=== PATIENT | female | born 1945 | race Caucasian/White ===

== ENCOUNTER 2022-09-04 14:33 | Outpatient (CLI) | payer MEDICARE, SELFPAY ==
--- NOTE | 2022-09-04 14:40 | CRLHL7_ITS ---
For Patients: As a result of the Century Cures Act, medical imaging exams and procedure reports are released immediately into your electronic medical record. You may view this report before your referring provider. If you have questions, please contact your health care provider. BILATERAL SCREENING MAMMOGRAM WITH COMPUTER-AIDED DETECTION AND TOMOSYNTHESIS TECHNIQUE: CC and MLO views were obtained. These mammographic images have been obtained using full-field digital technique. These mammographic images were interpreted with the benefit of computer-aided detection. Breast Tomosynthesis was used in this interpretation. COMPARISON FILM: 08/22/21 screen, 09/14/20 diagnostic outside. FINDINGS: The breasts are heterogeneously dense, which may obscure small masses IMPRESSION: There is no radiographic evidence for malignancy. ASSESSMENT: BI-RADS Category 1: Negative RECOMMENDATION: Routine screening mammogram in 1 year. A lay language report of this examination will be provided to the patient. Jennifer Kingsley M.D. Diagnostic/Breast Radiologist [email or web address] ROSE/Dictated by: Jennifer Kingsley MD @ 09/05/2022 8:42:00 AM (Electronically Signed)
== END 2022-09-04 14:34 | disposition home or self-care (01) ==
LOC: MAMMO 14:34
DX: Z12.31 Encounter for screening mammogram for malignant neoplasm of breast (principal); R92.2 Inconclusive mammogram
CPT/HCPCS: 77063; 77067

== ENCOUNTER 2023-10-08 13:37 | Outpatient (CLI) | payer MEDICARE, SELFPAY ==
--- NOTE | 2023-10-08 14:00 | CRLHL7_ITS ---
For Patients: As a result of the Century Cures Act, medical imaging exams and procedure reports are released immediately into your electronic medical record. You may view this report before your referring provider. If you have questions, please contact your health care provider. BILATERAL SCREENING MAMMOGRAM WITH COMPUTER-AIDED DETECTION AND TOMOSYNTHESIS TECHNIQUE: CC and MLO views were obtained. These mammographic images have been obtained using full-field digital technique. These mammographic images were interpreted with the benefit of computer-aided detection. Breast Tomosynthesis was used in this interpretation. COMPARISON FILM: 09/04/22, 08/22/21, 09/14/20 (diagnostic), 08/16/20 ([facility]) FINDINGS: The breasts are heterogeneously dense, which may obscure small masses IMPRESSION: There is no radiographic evidence for malignancy. ASSESSMENT: BI-RADS Category 1: Negative RECOMMENDATION: Routine screening mammogram in 1 year. A lay language report of this examination will be provided to the patient. Leland Haynes M.D. Diagnostic Radiologist [email or web address] ROSE/Dictated by: Leland Haynes MD @ 10/09/2023 1:00:00 PM (Electronically Signed)
== END 2023-10-08 13:38 | disposition home or self-care (01) ==
LOC: MAMMO 13:39
PROVIDERS: PCP Family Medicine; Visit Provider Family Medicine
DX: Z12.31 Encounter for screening mammogram for malignant neoplasm of breast (principal); R92.2 Inconclusive mammogram
CPT/HCPCS: 77063; 77067

== ENCOUNTER 2024-06-10 14:41 | Inpatient (IN) | payer MEDICARE, SELFPAY ==
[2024-06-10] VITALS (18 sets, daily range): BP systolic 125–141; BP diastolic 70–75; PULSE 78–92; RESP 16–20; TEMP 36.5–36.8; O2SAT 89–96; BMI 25.8; BMI 24.9
--- NOTE | 2024-06-10 15:43 | ED.GENADULT ---
HPI - General Adult General Time Seen by Provider: 15:43 Date Seen: 06/10/24 Chief complaint: Nausea/Vomiting Stated complaint: stomach pain Time Seen by Provider: 06/10/24 15:41 Source: patient and RN notes reviewed Mode of arrival: ambulatory Limitations: no limitations History of Present Illness HPI narrative: This 78-year-old female is coming in with abdominal pain and nausea vomiting. She awoke with it at 4:00 a.m. today. She has been vomiting all day, now more dry heaving. Denies any diarrhea, no urinary symptoms. She states it hurts in the middle of her abdomen. It is radiating into her back on both sides. No fevers or chills. 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 She states these are her only abdominal surgeries. Her wonders if this could be appendicitis. She has not been able to eat anything today. No respiratory symptoms with this. She is not on any blood thinners. Related Data Home Medications ?Medication ?Instructions ?Recorded ?Confirmed hydrocortisone 2.5 % rectal cream 2.5 ea topical TID 08/07/22 08/07/22 with applicator simvastatin 5 mg tablet 5 mg PO .Bedtime 08/07/22 08/07/22 cholecalciferol (vitamin D3) 25 25 mcg PO QDAY 09/25/22 09/25/22 mcg (1,000 unit) capsule Previous Rx's ?Medication ?Instructions ?Recorded triamcinolone acetonide 0.025 % 1 applic topical BID #454 grams 08/07/22 topical cream Allergies Allergy/AdvReac Type Severity Reaction Status Date / Time wheat Allergy Mild Gut issues Verified 06/10/24 17:18 Wheat Extract Allergy Unknown Gut issues Uncoded 06/10/24 17:18 Review of Systems Status of ROS: Reports: 6 or more systems reviewed and unremarkable except as noted in History and below [facility] Social History Smoking Status: Never smoker Do you use any of these nicotine containing products: None How often do you have a drink containing alcohol: never How often do you have six or more drinks on one occasion: Never AUDIT-C Alcohol total score: 0 Non-prescribed substance use: denies use service: No Exam Const: Vital Signs, click to edit/add: Vital Signs - 24 hr 06/10/24 14:45 06/10/24 15:53 06/10/24 16:55 Temperature 97.7 F Pulse Rate 90 Pulse Rate [Pulse Oximeter] 78 Respiratory Rate 20 Blood Pressure Blood Pressure [Ri ght Upper Arm] 138/74 Pulse Oximetry 96 94 95 Oxygen Delivery Me thod Room Air 06/10/24 17:00 06/10/24 17:02 06/10/24 17:03 Temperature Pulse Rate 86 87 90 Pulse Rate [Pulse Oximeter] Respiratory Rate Blood Pressure 125/73 Blood Pressure [Ri ght Upper Arm] Pulse Oximetry 94 94 93 Oxygen Delivery Me thod 06/10/24 17:15 06/10/24 17:30 06/10/24 17:31 Temperature Pulse Rate 87 89 87 Pulse Rate [Pulse Oximeter] Respiratory Rate Blood Pressure 127/71 Blood Pressure [Ri ght Upper Arm] Pulse Oximetry 92 93 94 Oxygen Delivery Me thod 06/10/24 17:45 06/10/24 18:00 06/10/24 18:02 Temperature Pulse Rate 92 84 86 Pulse Rate [Pulse Oximeter] Respiratory Rate Blood Pressure 138/72 Blood Pressure [Ri ght Upper Arm] Pulse Oximetry 92 95 92 Oxygen Delivery Me thod 06/10/24 18:03 06/10/24 18:15 06/10/24 18:30 Temperature Pulse Rate 86 81 79 Pulse Rate [Pulse Oximeter] Respiratory Rate Blood Pressure Blood Pressure [Ri ght Upper Arm] Pulse Oximetry 93 91 90 Oxygen Delivery Me thod 06/10/24 18:31 Temperature Pulse Rate 84 Pulse Rate [Pulse Oximeter] Respiratory Rate Blood Pressure 125/70 Blood Pressure [Ri ght Upper Arm] Pulse Oximetry 89 Oxygen Delivery Me thod 78-year-old female is alert, interactive, looks like she does not feel well. Pupils equal round reactive, sclerae clear, face atraumatic. Able speak in complete sentences. Neck is supple, no adenopathy or masses. Lungs are clear, good air entry, no wheezing or crackles. CV regular rate and rhythm, no murmur, normal S1-S2, no S3-S4. Abdomen maybe mildly distended, she has more right paraumbilical tenderness that seems to generally generalized. Outside of the right paraumbilical area to right mid abdomen where there is a sense of guarding rebound, not felt this to be generalized in the abdomen. No lower extremity edema. Skin visualized without rash. Documenting provider has reviewed patient's vital signs: yes Course Course ED Course: Her certainly is correct that appendicitis is on her differential. There where that we will be ordering CT imaging. Certainly bowel obstruction is possible as she has had prior abdominal surgeries. Will get full complement of labs, order the abdomen pelvis CT with IV contrast, will do point of care creatinine to facilitate this imaging. In the meantime, initiate IV fluids, 2 mg IV morphine and 4 mg IV Zofran for symptom control. She will be monitored on pulse oximetry. Consultations Consultation #1: Reviewed with surgeon Dr. Ho. We will try to place an NG. She will talk to the hospitalist Dr. Warner (I had talked to him previously about this patient so he is aware). She would like a Gastrografin challenge, this is to be done in ordered on the floor however. She is hoping that may open her up. Will have nursing staff place NG and plan for admission to the floor. Patient is updated on all of this. Dr. Warner is actually down in ED and has confirmed that he has heard from Dr. Ho as well. Time: 18:43 Vital Signs Vital signs: Initial Vital Signs Temperature 97.7 F 06/10/24 14:45 Temperature Source Temporal Artery Scan 06/10/24 14:45 Pulse Rate 78 06/10/24 14:45 Respiratory Rate 20 06/10/24 14:45 Blood Pressure 138/74 06/10/24 14:45 Blood Pressure Mean 95 06/10/24 14:45 Pulse Oximetry 96 06/10/24 14:45 Oxygen Delivery Method Room Air 06/10/24 14:45 Vital Signs Temperature 97.7 F 06/10/24 14:45 Pulse Rate 78 06/10/24 14:45 Respiratory Rate 20 06/10/24 14:45 Blood Pressure 138/74 06/10/24 14:45 Pulse Oximetry 96 06/10/24 14:45 Oxygen Delivery Method Room Air 06/10/24 14:45 Temperature 97.7 F 06/10/24 14:45 Pulse Rate 84 06/10/24 18:31 Respiratory Rate 20 06/10/24 14:45 Blood Pressure 125/70 06/10/24 18:31 Pulse Oximetry 89 06/10/24 18:31 Oxygen Delivery Method Room Air 06/10/24 14:45 Medications Administered Medications: Discontinued Medications Generic Name Dose Route Start Last Admin Trade Name Deepa PRN Reason Stop Dose Admin Sodium Chloride 1,000 mls @ 500 mls/hr 06/10/24 15:54 06/10/24 16:31 0.9 % Sodium Chloride 1000 Ml IV 06/10/24 17:53 500 mls/hr .Q2H ADE Administration Morphine Sulfate 2 mg 06/10/24 15:53 06/10/24 16:25 Morphine 2 Mg/Ml Inj IVP 06/10/24 15:54 2 mg ONCE ONE Administration Ondansetron HCl 4 mg 06/10/24 15:53 06/10/24 16:27 Ondansetron 2 Mg/Ml Inj IVP 06/10/24 15:54 4 mg ONCE ONE Administration Medical Decision Making Lab Data Lab results reviewed: Yes I reviewed the patient's lab results Labs: Lab Results 06/10/24 06/10/24 06/10/24 Range/Units 15:54 16:23 16:23 WBC 10.88 (4.50-11.00) K/uL RBC 4.02 (4.00-5.20) m/uL Hgb 12.7 (12.0-16.0) gm/dL Hct 38.0 (33.0-51.0) % MCV 95 (80-100) fL MCH 32 (26-34) pg MCHC 33 (32-36) gm/dL RDW Coeff of Sixto 12.1 (11.5-15.5) % Plt Count 212 (140-440) K/uL Neut % (Auto) 89.7 H (42.0-72.0) % Lymph % (Auto) 6.9 L (20-44) % [place] % (Auto) 3.1 (0.0-11.0) % Eos % (Auto) 0.0 (0.0-7.0) % Baso % (Auto) 0.2 (0.0-3.0) % Neut # (Auto) 9.80 H (1.7-7.0) K/uL Lymph # (Auto) 0.80 L (0.90-2.90) K/uL Monroe # (Auto) 0.30 (0.00-0.90) K/UL Eos # (Auto) 0.00 (0.00-0.50) K/uL Baso # (Auto) 0.02 (0.00-0.30) K/uL Abs Immat Gran (auto) 0.01 (0.00-0.30) K/uL Imm/Tot Granulo (auto) 0.1 % Sodium 133 L (135-149) mmol/L Potassium 4.0 (3.6-5.1) mmol/L Chloride 102 (96-114) mmol/L Carbon Dioxide 24 (20-32) mmol/L Anion Gap 7 (7-15) mEq/L BUN 14 (7-30) mg/dL Creatinine 0.6 (0.5-1.5) mg/dL Estimated Creat Clear 44.10 Estimated GFR 92 ml/min Glucose 162 H (60-115) mg/dL Lactate 1.7 (0.5-1.9) mmol/L Calcium 9.4 (8.4-10.6) mg/dL Total Bilirubin 0.8 (0.1-1.5) mg/dL AST 30 (12-35) U/L ALT 17 (4-35) U/L Alkaline Phosphatase 98 (40-150) U/L C-Reactive Protein < 0.5 L (0.5-1.0) mg/dL Total Protein 7.0 (6.0-8.3) g/dL Albumin 4.3 (3.3-5.0) g/dL Lipase 85 Cancelled (23-300) U/L Urine Color (Yellow) Urine Appearance (Clear) Urine pH (5.0-8.5) Ur Specific [place] (1.000-1.030) Urine Protein (Negative) Urine Glucose (UA) (Negative) Urine Ketones (Negative) Urine Blood (Negative) Urine Nitrite (Negative) Urine Bilirubin (Negative) Urine Urobilinogen (0.2-1.0) Ur Leukocyte Esterase (Negative) Urine RBC (0-2) Urine WBC (0-5) Urine WBC Clumps (None) Ur Squamous Epith Cells (None-Few) Amorphous Sediment (None) Urine Bacteria (None) POC Creatinine 0.6 (0.6-1.3) mg/dl 06/10/24 Range/Units 17:50 WBC (4.50-11.00) K/uL RBC (4.00-5.20) m/uL Hgb (12.0-16.0) gm/dL Hct (33.0-51.0) % MCV (80-100) fL MCH (26-34) pg MCHC (32-36) gm/dL RDW Coeff of Sixto (11.5-15.5) % Plt Count (140-440) K/uL Neut % (Auto) (42.0-72.0) % Lymph % (Auto) (20-44) % Monroe % (Auto) (0.0-11.0) % Eos % (Auto) (0.0-7.0) % Baso % (Auto) (0.0-3.0) % Neut # (Auto) (1.7-7.0) K/uL Lymph # (Auto) (0.90-2.90) K/uL Monroe # (Auto) (0.00-0.90) K/UL Eos # (Auto) (0.00-0.50) K/uL Baso # (Auto) (0.00-0.30) K/uL Abs Immat Gran (auto) (0.00-0.30) K/uL Imm/Tot Granulo (auto) % Sodium (135-149) mmol/L Potassium (3.6-5.1) mmol/L Chloride (96-114) mmol/L Carbon Dioxide (20-32) mmol/L Anion Gap (7-15) mEq/L BUN (7-30) mg/dL Creatinine (0.5-1.5) mg/dL Estimated Creat Clear Estimated GFR ml/min Glucose (60-115) mg/dL Lactate (0.5-1.9) mmol/L Calcium (8.4-10.6) mg/dL Total Bilirubin (0.1-1.5) mg/dL AST (12-35) U/L ALT (4-35) U/L Alkaline Phosphatase (40-150) U/L C-Reactive Protein (0.5-1.0) mg/dL Total Protein (6.0-8.3) g/dL Albumin (3.3-5.0) g/dL Lipase (23-300) U/L Urine Color Yellow (Yellow) Urine Appearance Clear (Clear) Urine pH 8.5 (5.0-8.5) Ur Specific [place] 1.015 (1.000-1.030) Urine Protein Negative (Negative) Urine Glucose (UA) Negative (Negative) Urine Ketones 1+ A (Negative) Urine Blood Negative (Negative) Urine Nitrite Negative (Negative) Urine Bilirubin Negative (Negative) Urine Urobilinogen 1.0 (0.2-1.0) Ur Leukocyte Esterase Negative (Negative) Urine RBC 0-2 (0-2) Urine WBC 0-2 (0-5) Urine WBC Clumps None (None) Ur Squamous Epith Cells Few (None-Few) Amorphous Sediment Moderate A (None) Urine Bacteria None (None) POC Creatinine (0.6-1.3) mg/dl Imaging Data CT scan - abdomen: Attestation: I have reviewed the pertinent imaging results. Radiologist's impression: Patient: MIKE LEE Facility:?[facility] Patient ID:?[id number] Site Patient ID:?[id number]. Site :?[id number] Study:?CT-Abdomen/Pelvis WITH ISOVUE 370 79cc-06/10/2024 5:00:16 PM Ordering Physician:?Dav Arredondo Final Report: INDICATION: Abdominal pain, nausea/vomiting. TECHNIQUE: CT abdomen and pelvis acquired with 79 cc of Isovue 370 IV contrast. COMPARISON: None. FINDINGS: Lower chest: Unremarkable. Liver: Unremarkable. Normal in size and attenuation. No suspicious masses. Gallbladder and bile ducts: Unremarkable. No stones or inflammation. No biliary dilatation. Pancreas: Unremarkable. No mass or inflammation. Spleen: Unremarkable. Normal in size. No masses. Adrenal glands: Unremarkable. No nodules. Kidneys: Prior right nephrectomy. Unremarkable left kidney. GI tract: Several dilated loops bowel within the left hemiabdomen with air-fluid levels. Possible transition point within the left mid hemiabdomen ( and ). There is appropriate enhancement of bowel. Large colonic stool burden. Normal appendix. Vasculature: Normal caliber abdominal aorta with moderate atherosclerotic calcification. Mesenteric arteries are patent. Lymph nodes: No lymphadenopathy. Peritoneum/Abdominal Wall: Unremarkable abdominal wall. Tiny volume free fluid about the left paracolic gutter. No free air. Pelvis: Unremarkable. Bones: Unremarkable for age. IMPRESSION: 1. Small-bowel obstruction with transition point in the left mid hemiabdomen, suspect on the basis of an adhesion. 2. Large colonic stool burden. 3. Prior right nephrectomy. Please note that all CT scans at this facility use dose modulation, iterative reconstruction, and/or weight-based dosing when appropriate to reduce radiation dose to as low as reasonably achievable. Dictated by Rosas Ellington MD @ 06/10/2024 6:15:47 PM (Electronic Signature) Discharge Plan Discharge Clinical Impression: Small bowel obstruction Patient Disposition: Admitted As Inpatient Condition: Unchanged
--- NOTE | 2024-06-10 15:53 | CRLHL7_ITS ---
For Patients: As a result of the Century Cures Act, medical imaging exams and procedure reports are released immediately into your electronic medical record. You may view this report before your referring provider. If you have questions, please contact your health care provider. INDICATION: Abdominal pain, nausea/vomiting. TECHNIQUE: CT abdomen and pelvis acquired with 79 cc of Isovue 370 IV contrast. COMPARISON: None. FINDINGS: Lower chest: Unremarkable. Liver: Unremarkable. Normal in size and attenuation. No suspicious masses. Gallbladder and bile ducts: Unremarkable. No stones or inflammation. No biliary dilatation. Pancreas: Unremarkable. No mass or inflammation. Spleen: Unremarkable. Normal in size. No masses. Adrenal glands: Unremarkable. No nodules. Kidneys: Prior right nephrectomy. Unremarkable left kidney. GI tract: Several dilated loops bowel within the left hemiabdomen with air-fluid levels. Possible transition point within the left mid hemiabdomen ( and ). There is appropriate enhancement of bowel. Large colonic stool burden. Normal appendix. Vasculature: Normal caliber abdominal aorta with moderate atherosclerotic calcification. Mesenteric arteries are patent. Lymph nodes: No lymphadenopathy. Peritoneum/Abdominal Wall: Unremarkable abdominal wall. Tiny volume free fluid about the left paracolic gutter. No free air. Pelvis: Unremarkable. Bones: Unremarkable for age. IMPRESSION: 1. Small-bowel obstruction with transition point in the left mid hemiabdomen, suspect on the basis of an adhesion. 2. Large colonic stool burden. 3. Prior right nephrectomy. Please note that all CT scans at this facility use dose modulation, iterative reconstruction, and/or weight-based dosing when appropriate to reduce radiation dose to as low as reasonably achievable. Dictated by Rosas Ellington MD @ 06/10/2024 6:15:47 PM (Electronically Signed)
[2024-06-10] MEDS: MORPHINE 2 MG/ML inj IVP (16:25)
[2024-06-10] MEDS: ONDANSETRON 2 MG/ML inj 4 MG IVP (16:27)
[2024-06-10 16:29] LABS: Creatinine, Point-of-Care* 0.6 mg/dl (0.6-1.3)
[2024-06-10] MEDS: 0.9 % SODIUM CHLORIDE 1000 ml 1,000 ML 500 ML IV (16:31)
[2024-06-10 16:33] LABS: Lactate* 1.7 mmol/L (0.5-1.9)
[2024-06-10 16:37] LABS: Basophils Absolute Auto 0.02 K/uL (0.00-0.30); Basophils Percent Auto 0.2 % (0.0-3.0); Hemoglobin* 12.7 gm/dL (12.0-16.0); Immature Granulocytes Abs Auto 0.01 K/uL (0.00-0.30); Immature Granulocytes Pct Auto 0.1 %; Lymphocytes Percent Auto 6.9 % (20-44); Mean Corpuscular HGB Conc 33 gm/dL (32-36); Mean Corpuscular Hemoglobin 32 pg (26-34); Mean Corpuscular Volume 95 fL (80-100); Monocytes Percent Auto 3.1 % (0.0-11.0); Neutrophils Percent Auto 89.7 % (42.0-72.0); Platelet Count* 212 K/uL (140-440); RDW Coefficient of Variation % 12.1 % (11.5-15.5); Red Blood Count 4.02 m/uL (4.00-5.20); White Blood Count* 10.88 K/uL (4.50-11.00)
[2024-06-10 16:39] LABS: Slide Review Reflex No
[2024-06-10 16:52] LABS: Albumin* 4.3 g/dL (3.3-5.0); Chloride* 102 mmol/L (96-114); Sodium* 133 mmol/L (135-149)
[2024-06-10 16:54] LABS: Creatinine* 0.6 mg/dL (0.5-1.5); Estimated Glomerular Filt Rate 92 ml/min
[2024-06-10 16:55] LABS: Alanine Aminotransferase* 17 U/L (4-35); Alkaline Phosphatase* 98 U/L (40-150); Anion Gap 7 mEq/L (7-15); Aspartate Amino Transferase* 30 U/L (12-35); Bilirubin Total* 0.8 mg/dL (0.1-1.5); Blood Urea Nitrogen* 14 mg/dL (7-30); Carbon Dioxide* 24 mmol/L (20-32); Glucose* 162 mg/dL (60-115); Lipase* 85 U/L (23-300)
[2024-06-10 16:56] LABS: Calcium* 9.4 mg/dL (8.4-10.6)
[2024-06-10 16:58] LABS: C Reactive Protein* < 0.5 mg/dL (0.5-1.0)
[2024-06-10 17:58] LABS: Appearance Urine Clear (Clear); Bilirubin Urine Negative (Negative); Blood Urine Negative (Negative); Color Urine Yellow (Yellow); Glucose Urine Negative (Negative); Ketones Urine 1+ (Negative); Leukocyte Esterase Urine Negative (Negative); Nitrite Urine Negative (Negative); Protein Urine Negative (Negative); Specific Gravity Urine 1.015 (1.000-1.030); pH Urine 8.5 (5.0-8.5)
[2024-06-10 18:24] LABS: RBC Urine 0-2 (0-2); Squamous Epithelial Cell Urine Few (None-Few); WBC Urine 0-2 (0-5)
[2024-06-10 18:25] LABS: Amorphous Sediment Urine Moderate
--- NOTE | 2024-06-10 19:29 | P.IMHP_ITS ---
Hospitalist- H&P: HPI History of Present Illness Date Seen: 06/10/24 Chief complaint: stomach pain Narrative: Ira Valerio is a 78 year old female with history of kidney donation and Caesarean sections and lifelong constipation presents with a 1 day history of vomiting and abdominal pain. Patient reports she was in her usual state of good health until last evening when she began having some diarrhea stools. During the middle of the night she started vomiting and has been vomiting all day today. She is not having any more bowel movements and is not passing gas. She seen no blood in her stool or her emesis. She has not had a fever. She has generalized abdominal pain. No previous history of bowel obstruction. 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 No urinary problems. Review of Systems Narrative: She reports she has been well other than the events of the last day described above. 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 - Kidney donor (ICD-10) Tobacco abuse ?Z72.0 - Tobacco use (ICD-10) Gastroesophageal reflux ?K21.9 - Gastro-esophageal reflux disease without esophagitis (ICD-10) Hyperlipidemia ?E78.5 - Hyperlipidemia, unspecified (ICD-10) Pre-diabetes ?R73.03 - Prediabetes (ICD-10) Osteopenia ?M85.80 - Other specified disorders of bone density and structure, unspecified site (ICD-10) Surgical History (Updated 06/10/24 @ 19:33 by Sadi Warner MD) History of section ?Z98.891 - History of uterine scar from previous surgery (ICD-10) Family History (Updated 06/10/24 @ 19:35 by Sadi Warner MD) Father Asthma Mother High blood pressure Brother Kidney disease Other Breast cancer Social History (Updated 06/10/24 @ 19:35 by Sadi Warner MD) Narrative: She lives in [place] with her . She has a couple adult children and grandchildren. 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 She does not drink alcohol. No recreational drug use. 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 Code status is full. Smoking Status: Never smoker Do you use any of these nicotine containing products: None How often do you have a drink containing alcohol: never How often do you have six or more drinks on one occasion: Never AUDIT-C Alcohol total score: 0 Non-prescribed substance use: denies use service: No Meds Home Medications and Allergies Home Medications ?Medication ?Instructions ?Recorded ?Confirmed ?Type hydrocortisone 2.5 % rectal cream 2.5 ea topical TID 08/07/22 08/07/22 History with applicator cholecalciferol (vitamin D3) 25 25 mcg PO QDAY 09/25/22 06/10/24 History mcg (1,000 unit) capsule simvastatin 10 mg tablet 10 mg PO QPM 06/10/24 06/10/24 History Allergies Allergy/AdvReac Type Severity Reaction Status Date / Time wheat Allergy Mild Gut issues Verified 06/10/24 17:18 Wheat Extract Allergy Unknown Gut issues Uncoded 06/10/24 17:18 Exam Narrative: Exam Narrative: She is alert and appears in no distress. Speech is normal. She is oriented to her circumstances. Eyes normal. Oropharynx normal. Neck is supple without mass or adenopathy. Respirations are clear to auscultation. Cardiovascular: S1, S2, 1/6 systolic murmur. No gallop or rub. Abdomen bowel sounds are diminished but present. Abdomen is soft with mild diffuse tenderness. No focal tenderness. No peritonitis. External genitalia normal. Extremities with intact pedal pulses. No edema. She moves all 4 extremities well. No rash. Const: Vital Signs, click to edit/add: Vital Signs - 24 hr 06/10/24 14:45 06/10/24 15:53 06/10/24 16:55 Temperature 97.7 F Pulse Rate 90 Pulse Rate [Pulse Oximeter] 78 Respiratory Rate 20 Blood Pressure Blood Pressure [Ri ght Upper Arm] 138/74 Pulse Oximetry 96 94 95 Oxygen Delivery Me thod Room Air 06/10/24 17:00 06/10/24 17:02 06/10/24 17:03 Temperature Pulse Rate 86 87 90 Pulse Rate [Pulse Oximeter] Respiratory Rate Blood Pressure 125/73 Blood Pressure [Ri ght Upper Arm] Pulse Oximetry 94 94 93 Oxygen Delivery Me thod 06/10/24 17:15 06/10/24 17:30 06/10/24 17:31 Temperature Pulse Rate 87 89 87 Pulse Rate [Pulse Oximeter] Respiratory Rate Blood Pressure 127/71 Blood Pressure [Ri ght Upper Arm] Pulse Oximetry 92 93 94 Oxygen Delivery Me thod 06/10/24 17:45 06/10/24 18:00 06/10/24 18:02 Temperature Pulse Rate 92 84 86 Pulse Rate [Pulse Oximeter] Respiratory Rate Blood Pressure 138/72 Blood Pressure [Ri ght Upper Arm] Pulse Oximetry 92 95 92 Oxygen Delivery Me thod 06/10/24 18:03 06/10/24 18:15 06/10/24 18:30 Temperature Pulse Rate 86 81 79 Pulse Rate [Pulse Oximeter] Respiratory Rate Blood Pressure Blood Pressure [Ri ght Upper Arm] Pulse Oximetry 93 91 90 Oxygen Delivery Me thod 06/10/24 18:31 Temperature Pulse Rate 84 Pulse Rate [Pulse Oximeter] Respiratory Rate Blood Pressure 125/70 Blood Pressure [Ri ght Upper Arm] Pulse Oximetry 89 Oxygen Delivery Me thod Documenting provider has reviewed patient's vital signs: yes Hospitalist - H&P: Result Labs Labs: Short CBC 06/10/24 Range/Units 16:23 WBC 10.88 (4.50-11.00) K/uL Hgb 12.7 (12.0-16.0) gm/dL Hct 38.0 (33.0-51.0) % Plt Count 212 (140-440) K/uL BMP 06/10/24 16:23 Sodium 133 L Potassium 4.0 Chloride 102 Carbon Dioxide 24 BUN 14 Creatinine 0.6 Glucose 162 H Calcium 9.4 Liver Function 06/10/24 Range/Units 16:23 Total Bilirubin 0.8 (0.1-1.5) mg/dL AST 30 (12-35) U/L ALT 17 (4-35) U/L Alkaline Phosphatase 98 (40-150) U/L Albumin 4.3 (3.3-5.0) g/dL Urine 06/10/24 Range/Units 17:50 Urine Color Yellow (Yellow) Urine Appearance Clear (Clear) Urine pH 8.5 (5.0-8.5) Ur Specific [place] 1.015 (1.000-1.030) Urine Protein Negative (Negative) Urine Glucose (UA) Negative (Negative) Imaging CT scan - abdomen: Radiologist's impression: INDICATION: Abdominal pain, nausea/vomiting. TECHNIQUE: CT abdomen and pelvis acquired with 79 cc of Isovue 370 IV contrast. COMPARISON: None. FINDINGS: Lower chest: Unremarkable. Liver: Unremarkable. Normal in size and attenuation. No suspicious masses. Gallbladder and bile ducts: Unremarkable. No stones or inflammation. No biliary dilatation. Pancreas: Unremarkable. No mass or inflammation. Spleen: Unremarkable. Normal in size. No masses. Adrenal glands: Unremarkable. No nodules. Kidneys: Prior right nephrectomy. Unremarkable left kidney. GI tract: Several dilated loops bowel within the left hemiabdomen with air-fluid levels. Possible transition point within the left mid hemiabdomen ( and ). There is appropriate enhancement of bowel. Large colonic stool burden. Normal appendix. Vasculature: Normal caliber abdominal aorta with moderate atherosclerotic calcification. Mesenteric arteries are patent. Lymph nodes: No lymphadenopathy. Peritoneum/Abdominal Wall: Unremarkable abdominal wall. Tiny volume free fluid about the left paracolic gutter. No free air. Pelvis: Unremarkable. Bones: Unremarkable for age. IMPRESSION: 1. Small-bowel obstruction with transition point in the left mid hemiabdomen, suspect on the basis of an adhesion. 2. Large colonic stool burden. 3. Prior right nephrectomy. Assessment and Plan Assessment and plan (1) Small bowel obstruction: Problem comment: Likely due to adhesions from prior kidney surgery Status: Acute (2) Constipation: Problem comment: Lifelong problem. Recommend more aggressive laxative use chronically Status: Acute Plan Patient is admitted to the hospital for management of small bowel obstruction w ith NG suctioning, IV fluids. Surgical consult. Conservative management at this time. Total Time Spent Total Time Spent: Total time spent is 60 minutes in evaluation management and discussing with patient and other providers ongoing plan of care
--- NOTE | 2024-06-10 19:34 | ED.NURSE ---
Patient report given to teresa WOODS
[2024-06-10] MEDS: SODIUM CHLORIDE 0.9 % (FLUSH) 10 ML SYRINGE 5 ML IVF ×2 (20:07→23:12)
[2024-06-10] MEDS: HYDROmorphone 0.5 mg/0.5 ml inj IVP ×2 (20:07→23:13)
--- NOTE | 2024-06-10 21:19 | CRLHL7_ITS ---
For Patients: As a result of the Century Cures Act, medical imaging exams and procedure reports are released immediately into your electronic medical record. You may view this report before your referring provider. If you have questions, please contact your health care provider. INDICATION: Tube placement. TECHNIQUE: Abdomen 1 view. COMPARISON: CT abdomen and pelvis 06/10/2024. IMPRESSION: NG tube tip projects over the proximal stomach with the side port near the GE junction, consider advancement. Distended small bowel loops, consistent with small-bowel obstruction. Dictated by Lewis Harkins MD @ 06/10/2024 10:49:23 PM (Electronically Signed)
[2024-06-10] MEDS: LACTATED RINGERS 500 ML 500 ML IV (21:51)
[2024-06-10] MEDS: LACTATED RINGERS 1000 ML 1,000 ML 125 ML IV (22:55)
[2024-06-11] VITALS (19 sets, daily range): BP systolic 90–163; BP diastolic 60–97; PULSE 80–113; RESP 12–24; TEMP 36.1–36.9; O2SAT 89–97
[2024-06-11] MEDS: HYDROmorphone 0.5 mg/0.5 ml inj IVP ×5 (02:11→14:19)
[2024-06-11] MEDS: ONDANSETRON 2 MG/ML inj 4 MG IVP ×2 (02:20→09:43)
[2024-06-11 07:26] LABS: Basophils Percent Auto 0.1 % (0.0-3.0); Hematocrit 45.3 % (33.0-51.0); Immature Granulocytes Pct Auto 0.1 %; Lymphocytes Percent Auto 7.7 % (20-44); Mean Corpuscular HGB Conc 33 gm/dL (32-36); Mean Corpuscular Hemoglobin 31 pg (26-34); Mean Corpuscular Volume 95 fL (80-100); Neutrophils Percent Auto 83.1 % (42.0-72.0); Platelet Count* 242 K/uL (140-440); RDW Coefficient of Variation % 12.2 % (11.5-15.5); Red Blood Count 4.78 m/uL (4.00-5.20); White Blood Count* 16.92 K/uL (4.50-11.00)
[2024-06-11 07:27] LABS: Slide Review Reflex No
[2024-06-11 07:42] LABS: Chloride* 103 mmol/L (96-114); Sodium* 136 mmol/L (135-149)
[2024-06-11 07:45] LABS: Creatinine* 0.7 mg/dL (0.5-1.5); Estimated Glomerular Filt Rate 89 ml/min
[2024-06-11 07:46] LABS: Anion Gap 10 mEq/L (7-15); Blood Urea Nitrogen* 16 mg/dL (7-30); Calcium* 9.3 mg/dL (8.4-10.6); Carbon Dioxide* 23 mmol/L (20-32); Glucose* 151 mg/dL (60-115)
--- NOTE | 2024-06-11 07:47 | PC.NURSE ---
Pt alert and oriented x3. Afebrile. Pt reports 5-10 pain in abdomen, pain managed with PRN medications. Pt reports nausea, managed with PRN Zofran. Pt's NG Tube is patent and draining at 60cm, pt 1600 output brown in color. Pt is up SBA with IV pole.
[2024-06-11] MEDS: LACTATED RINGERS 1000 ML 1,000 ML 125 ML IV ×2 (08:39→16:59)
[2024-06-11 08:54] LABS: Procalcitonin* 0.11 ng/mL (<0.50)
--- NOTE | 2024-06-11 09:16 | P.GSCN_ITS ---
History of Present Illness Consult details Date Seen: 06/11/24 Consult date: 06/11/24 Narrative: The patient is a 78-year-old female who was admitted to the hospital last evening with small-bowel obstruction. She states that evening, or the evening prior to admission she developed vomiting. This continued through the night and into the next day. She had abdominal pain and cramping with this as well. She has never had anything like this before. On admission, her abdomen was mildly tender diffusely. Labs were within normal limits. An NG was placed. She has had approximately 1 L out. The patient does have a history of a C- section as well as a right donor nephrectomy. She states that overnight she has felt persistent symptoms, no better or worse than prior. She has had shoulder pain and difficulty getting comfortable. She was uncomfortable laying down and felt better standing. Pain medication makes her pain better, however does come back. She has been hot and clammy this morning. 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.4 - Kidney donor (ICD-10) Tobacco abuse ?Z72.0 - Tobacco use (ICD-10) Gastroesophageal reflux ?K21.9 - Gastro-esophageal reflux disease without esophagitis (ICD-10) Hyperlipidemia ?E78.5 - Hyperlipidemia, unspecified (ICD-10) Pre-diabetes ?R73.03 - Prediabetes (ICD-10) Osteopenia ?M85.80 - Other specified disorders of bone density and structure, unspecified site (ICD-10) Surgical History (Updated 06/10/24 @ 19:33 by Sadi Warner MD) History of section ?Z98.891 - History of uterine scar from previous surgery (ICD-10) Family History (Updated 06/10/24 @ 19:35 by Sadi Warner MD) Father Asthma Mother High blood pressure Brother Kidney disease Other Breast cancer Social History (Updated 06/10/24 @ 19:35 by Sadi Warner MD) Narrative: She lives in [place] with her . She has a couple adult children and grandchildren. 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 She does not drink alcohol. No recreational drug use. 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 Code status is full. What is your current living situation?: I presently have a place to live Problems where you live: no known problems Problems where you live details: no known problems In the past 12 months, utilities in danger of being shut off: no In past 12 months, lack of transportation kept you from medical appts, meetings, work, or getting things needed for daily living: no In the past 12 mos, have been you worried that your food would run out before you had money to buy more?: never true In the past 12 mos, the food you bought just didn't last and you didn't have money to buy more?: never true Smoking Status: Current every day smoker What tobacco products do you use: cigarettes Smoking packs per day: 5 Smoking cigarettes per day: 100.0 Do you use any of these nicotine containing products: None How often do you have a drink containing alcohol: 2-3 times a week Alcohol type: beer and hard liquor How many standard drinks containing alcohol do you have on a typical day: 1 or 2 How often do you have six or more drinks on one occasion: Never AUDIT-C Alcohol total score: 3 Non-prescribed substance use: denies use Caffeine: Yes How often does anyone, including family, friends and others, physically hurt you : never How often does anyone, including family, friends and others, insult or talk down to you: never How often does anyone, including family, friends and others, threaten you with harm: never How often does anyone, including family, friends and others, scream or curse at you: never service: No Meds Home Medications and Allergies Home Medications ?Medication ?Instructions ?Recorded ?Confirmed ?Type cholecalciferol (vitamin D3) 25 25 mcg PO QDAY 09/25/22 06/10/24 History mcg (1,000 unit) capsule simvastatin 10 mg tablet 10 mg PO HS 06/10/24 06/11/24 History Allergies Allergy/AdvReac Type Severity Reaction Status Date / Time wheat Allergy Mild Gut issues Verified 06/10/24 17:18 Exam Narrative: Exam Narrative: General: Patient is mildly uncomfortable in her chair. Is retching despite NG tube. Respiratory: Breathing is nonlabored HEENT: NG in place with 1 L of brown drainage. CV: Mild tachycardia Abdomen: Distended. Firm. Patient endorses only mild tenderness to palpation however. Const: Vital Signs, click to edit/add: Vital Signs - 24 hr 06/10/24 14:45 06/10/24 15:53 06/10/24 16:55 Temperature 97.7 F Pulse Rate 90 Pulse Rate [Pulse Oximeter] 78 Respiratory Rate 20 Blood Pressure Blood Pressure [Le ft Arm] Blood Pressure [Ri ght Arm] Blood Pressure [Ri ght Upper Arm] 138/74 Pulse Oximetry 96 94 95 Oxygen Delivery Me thod Room Air 06/10/24 17:00 06/10/24 17:02 06/10/24 17:03 Temperature Pulse Rate 86 87 90 Pulse Rate [Pulse Oximeter] Respiratory Rate Blood Pressure 125/73 Blood Pressure [Le ft Arm] Blood Pressure [Ri ght Arm] Blood Pressure [Ri ght Upper Arm] Pulse Oximetry 94 94 93 Oxygen Delivery Me thod 06/10/24 17:15 06/10/24 17:30 06/10/24 17:31 Temperature Pulse Rate 87 89 87 Pulse Rate [Pulse Oximeter] Respiratory Rate Blood Pressure 127/71 Blood Pressure [Le ft Arm] Blood Pressure [Ri ght Arm] Blood Pressure [Ri ght Upper Arm] Pulse Oximetry 92 93 94 Oxygen Delivery Me thod 06/10/24 17:45 06/10/24 18:00 06/10/24 18:02 Temperature Pulse Rate 92 84 86 Pulse Rate [Pulse Oximeter] Respiratory Rate Blood Pressure 138/72 Blood Pressure [Le ft Arm] Blood Pressure [Ri ght Arm] Blood Pressure [Ri ght Upper Arm] Pulse Oximetry 92 95 92 Oxygen Delivery Me thod 06/10/24 18:03 06/10/24 18:15 06/10/24 18:30 Temperature Pulse Rate 86 81 79 Pulse Rate [Pulse Oximeter] Respiratory Rate Blood Pressure Blood Pressure [Le ft Arm] Blood Pressure [Ri ght Arm] Blood Pressure [Ri ght Upper Arm] Pulse Oximetry 93 91 90 Oxygen Delivery Me thod 06/10/24 18:31 06/10/24 20:05 06/10/24 20:05 Temperature 98.2 F Pulse Rate 84 Pulse Rate [Pulse Oximeter] Respiratory Rate 16 Blood Pressure 125/70 Blood Pressure [Le ft Arm] Blood Pressure [Ri ght Arm] 141/75 H Blood Pressure [Ri ght Upper Arm] Pulse Oximetry 89 89 Oxygen Delivery Me thod Room Air Room Air 06/10/24 22:19 06/11/24 02:25 06/11/24 08:24 Temperature 98.1 F 98.3 F Pulse Rate Pulse Rate [Pulse Oximeter] 83 80 113 H Respiratory Rate 16 20 24 Blood Pressure Blood Pressure [Le ft Arm] Blood Pressure [Ri ght Arm] 126/75 163/97 H Blood Pressure [Ri ght Upper Arm] Pulse Oximetry 93 95 Oxygen Delivery Me thod Room Air Room Air 06/11/24 08:24 Temperature Pulse Rate Pulse Rate [Pulse Oximeter] 113 H Respiratory Rate 24 Blood Pressure Blood Pressure [Le ft Arm] 92/73 Blood Pressure [Ri ght Arm] 90/60 Blood Pressure [Ri ght Upper Arm] Pulse Oximetry 91 Oxygen Delivery Me thod Room Air Results Labs Labs: Abnormal lab results 06/10/24 06/10/24 06/11/24 Range/Units 16:23 17:50 06:39 WBC 16.92 H (4.50-11.00) K/uL Neut % (Auto) 89.7 H 83.1 H (42.0-72.0) % Lymph % (Auto) 6.9 L 7.7 L (20-44) % Neut # (Auto) 9.80 H 14.10 H (1.7-7.0) K/uL Lymph # (Auto) 0.80 L (0.90-2.90) K/uL [place] # (Auto) 1.50 H (0.00-0.90) K/UL Sodium 133 L (135-149) mmol/L Glucose 162 H 151 H (60-115) mg/dL C-Reactive Protein < 0.5 L (0.5-1.0) mg/dL Urine Ketones 1+ A (Negative) Amorphous Sediment Moderate A (None) Diabetes panel 06/10/24 06/11/24 Range/Units 16:23 06:39 Sodium 133 L 136 (135-149) mmol/L Potassium 4.0 4.0 (3.6-5.1) mmol/L Chloride 102 103 (96-114) mmol/L Carbon Dioxide 24 23 (20-32) mmol/L BUN 14 16 (7-30) mg/dL Creatinine 0.6 0.7 (0.5-1.5) mg/dL Glucose 162 H 151 H (60-115) mg/dL Calcium 9.4 9.3 (8.4-10.6) mg/dL AST 30 (12-35) U/L ALT 17 (4-35) U/L Alkaline Phosphatase 98 (40-150) U/L Total Protein 7.0 (6.0-8.3) g/dL Albumin 4.3 (3.3-5.0) g/dL Calcium panel 06/10/24 06/11/24 Range/Units 16:23 06:39 Calcium 9.4 9.3 (8.4-10.6) mg/dL Albumin 4.3 (3.3-5.0) g/dL Pituitary panel 06/10/24 06/11/24 Range/Units 16:23 06:39 Sodium 133 L 136 (135-149) mmol/L Potassium 4.0 4.0 (3.6-5.1) mmol/L Chloride 102 103 (96-114) mmol/L Carbon Dioxide 24 23 (20-32) mmol/L BUN 14 16 (7-30) mg/dL Creatinine 0.6 0.7 (0.5-1.5) mg/dL Glucose 162 H 151 H (60-115) mg/dL Calcium 9.4 9.3 (8.4-10.6) mg/dL Adrenal panel 06/10/24 06/11/24 Range/Units 16:23 06:39 Sodium 133 L 136 (135-149) mmol/L Potassium 4.0 4.0 (3.6-5.1) mmol/L Chloride 102 103 (96-114) mmol/L Carbon Dioxide 24 23 (20-32) mmol/L BUN 14 16 (7-30) mg/dL Creatinine 0.6 0.7 (0.5-1.5) mg/dL Glucose 162 H 151 H (60-115) mg/dL Calcium 9.4 9.3 (8.4-10.6) mg/dL Total Bilirubin 0.8 (0.1-1.5) mg/dL AST 30 (12-35) U/L ALT 17 (4-35) U/L Alkaline Phosphatase 98 (40-150) U/L Total Protein 7.0 (6.0-8.3) g/dL Albumin 4.3 (3.3-5.0) g/dL All other labs normal. Imaging Abdomen CT scan report/results: report reviewed and image reviewed Additional studies: IMPRESSION: 1. Small-bowel obstruction with transition point in the left mid hemiabdomen, suspect on the basis of an adhesion. 2. Large colonic stool burden. 3. Prior right nephrectomy. Progress Note:A&P Assessment and plan (1) Small bowel obstruction: Status: Acute Plan The patient is a 78-year-old female with a small-bowel obstruction. Unfortunately this morning, her clinical picture appears worse. She is markedly distended and though she does not endorse significant pain on exam, she does have pain at rest and is tachycardic, with an elevated white blood cell count. An NG tube is in place and has evacuated 1 L of gastric contents, however despite this she still has nausea and retching. -given the worsening clinical picture, I think it is warranted to proceed to the OR for exploration. I explained the rationale behind this. Certainly with the rising white blood cell count there is risk of perforation or ischemic bowel. -I discussed that we would plan on doing this open because of her significant abdominal distension would make laparoscopy difficult. -we discussed the need for possible bowel resection. We also discussed recovery. She understands that the operative length will depend on intraoperative findings. -we will call the OR crew to plan on surgery emergently
[2024-06-11] MEDS: SODIUM CHLORIDE 0.9 % (FLUSH) 10 ML SYRINGE 5 ML IVF (09:56)
--- NOTE | 2024-06-11 11:03 | PM.GSPRC ---
Operative Note Date of procedure: 06/11/24 Pre-op diagnosis: Bowel obstruction Post-op diagnosis: Closed loop bowel obstruction Type of Procedure: 1. Exploratory laparotomy 2. Reduction of closed loop small bowel obstruction Indications: The patient is a 78-year-old female who developed abdominal pain, nausea and vomiting and was found to have a small-bowel obstruction. She was admitted to the hospital and an NG tube was placed. Unfortunately she worsened overnight and in the morning she was found to have tachycardia and elevated white blood cell count. I recommended emergent exploratory laparotomy with lysis of adhesions and possible bowel resection. Procedure Description: After discussing the risks and benefits of the procedure, the patient signed informed consent.? The operative site was marked and the patient was brought to the operating room and placed on the operating table in supine position.? Care was taken to pad the patient's pressure points.?? The patient was then intubated by anesthesia.?? The operative site was then prepped and draped in the usual sterile fashion.? A time-out was then performed. The midline incision was made in the upper abdomen. Dissection was taken down to the subcutaneous tissue using cautery. The fascia was excised along the midline. Pili clamps were then used to grasp the fascia. The peritoneum was then incised with the Metzenbaum scissors. The fascia and peritoneum were then opened along the length of incision. There was blood tinged ascites noted in the abdomen. The transverse colon was markedly dilated. This was delivered from the incision. The small bowel was examined. This was dilated proximally. It extended down to the retroperitoneum on the left. I was unable to see the location of the obstruction, therefore I extended the incision. An Rene wound retractor was placed. I then was able to run the small bowel starting at the ligament of Treitz and extending distally. A segment of ileum for approximately 30 cm was noted to be erythematous and edematous. The small bowel mesentery was hemorrhagic. There were no areas of necrosis. The bowel appeared red and hemorrhagic but was not purple and ischemic appearing. The bowel was run distally. This was the only area of concern. I turned my attention to examining for retroperitoneal hernia or adhesions which had caused the obstruction. The ligament Treitz was examined. There was no peritoneal or mesenteric opening here nor in the mesentery of the transverse or left colon. There were omental adhesions between the descending colon and transverse colon as well as abdominal wall. These were examined. There were no adhesions where the small bowel could have herniated through. Having felt as though the area was thoroughly explored, I then re-examined the small bowel. By the end of the case, hemorrhagic area had decreased to an area of approximately 15 cm. The redness had improved significantly. I used Doppler to identify an arterial signal at the mesenteric border of the small bowel along this area. The NG was then positioned appropriately in the stomach. The small bowel was then placed back into the abdomen. Fascia was then closed with a running looped 0 Maxon suture. The skin was closed with 3-0 Vicryl dermal and 4-0 Monocryl running subcuticular suture. Steri-Strips were applied. A sterile dressing was then applied. Anesthesia then performed a tap block. ? The patient was then woken and transported to the recovery area in stable condition. ? The patient tolerated the procedure well. Findings: Likely closed loop obstruction of a loop of ileum. No retroperitoneal hernia noted. No obvious adhesion found. Anesthesia: GETA Surgeon: Wendy Ho MD Estimated blood loss (mL): 10 Condition: stable Disposition: PACU
[2024-06-11] MEDS: LACTATED RINGERS 1000 ML 1,000 ML 100 ML IV ×2 (11:08→12:00)
[2024-06-11] MEDS: PIPERACILLIN/TAZOBACTAM 3.375 GM INJ IVPB (11:22)
--- NOTE | 2024-06-11 13:18 | P.ANES_ITS ---
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
--- NOTE | 2024-06-11 13:18 | W.ANESCHARGE ---
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
--- NOTE | 2024-06-11 13:20 | W.PM.NB ---
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 Images saved: Yes Medications given in 5ml increments after negative aspiration: Marcaine %: 0.25 mL: 30 Needle gauge: 20 and Exparel mL: 10 Patient tolerated procedure well: Yes Block Charges Block Charge (with Pro Fee): TAP Bilateral Use of Ultrasound Machine for Block: Yes- US Guidance/pain block
[2024-06-11] MEDS: fentaNYL 100 MCG/2 ML inj 50 MCG IVP ×2 (13:35→13:40)
--- NOTE | 2024-06-11 15:30 | P.IMPN_ITS ---
Progress Note: A&P Assessment and plan (1) Small bowel obstruction: Problem details: CT shows Small-bowel obstruction with transition point in the left mid hemiabdomen, suspect on the basis of an adhesion History of previous kidney surgery POD# 0 s/p exploratory laparotomy, reduction of closed loop small-bowel obstruction. NGT to remain in place. NPO. Continue IVF Pain and nausea management as needed Status: Acute (2) Constipation: Problem details: Lifelong problem. Recommend more aggressive laxative use chronically Status: Acute (3) Hyperlipidemia: Problem details: Hold statin for now Status: Acute Time Spent With Patient Total time spent: Total time spent caring for the patient today was 45 minutes. This includes time spent for the visit reviewing the chart, time spent during the visit, time spent after the visit and documentation and planning in coordination of care. Subjective Date Seen: 06/11/24 Interval history: Patient is seen with Dr. Ho, general surgery, this morning. Overnight patient has become hypotensive, tachycardic, diaphoretic. Abdomen remains diffusely distended with pain and nausea, vomiting despite NG tube in place. This morning has a white count. Decision has been made to take her to the OR for exploratory laparotomy. Exam Narrative: Exam Narrative: PHYSICAL EXAM General: Mildly anxious, appears uncomfortable HEENT: Normocephalic, atraumatic, sclera white, EOMI Cardiovascular: RRR, S1S2. No pitting edema Pulmonary: CTA bilaterally without rhonchi, rales, expiratory wheezes. No dyspnea on room air Abdominal: Distended, diffuse tenderness, no guarding Neurological: Alert, answering questions appropriately, cranial nerves intact, no focal findings Extremities: No gross joint deformity or swelling. AROMI. Neurovascularly intact Skin: Warm, dry. Const: Vital Signs, click to edit/add: Vital Signs - 24 hr 06/10/24 15:53 06/10/24 16:55 06/10/24 17:00 Temperature Pulse Rate 90 86 Pulse Rate [Pulse Oximeter] Respiratory Rate Blood Pressure Blood Pressure [Le ft Arm] Blood Pressure [Ri ght Arm] Pulse Oximetry 94 95 94 Oxygen Delivery Me thod Oxygen Flow Rate 06/10/24 17:02 06/10/24 17:03 06/10/24 17:15 Temperature Pulse Rate 87 90 87 Pulse Rate [Pulse Oximeter] Respiratory Rate Blood Pressure 125/73 Blood Pressure [Le ft Arm] Blood Pressure [Ri ght Arm] Pulse Oximetry 94 93 92 Oxygen Delivery Me thod Oxygen Flow Rate 06/10/24 17:30 06/10/24 17:31 06/10/24 17:45 Temperature Pulse Rate 89 87 92 Pulse Rate [Pulse Oximeter] Respiratory Rate Blood Pressure 127/71 Blood Pressure [Le ft Arm] Blood Pressure [Ri ght Arm] Pulse Oximetry 93 94 92 Oxygen Delivery Me thod Oxygen Flow Rate 06/10/24 18:00 06/10/24 18:02 06/10/24 18:03 Temperature Pulse Rate 84 86 86 Pulse Rate [Pulse Oximeter] Respiratory Rate Blood Pressure 138/72 Blood Pressure [Le ft Arm] Blood Pressure [Ri ght Arm] Pulse Oximetry 95 92 93 Oxygen Delivery Me thod Oxygen Flow Rate 06/10/24 18:15 06/10/24 18:30 06/10/24 18:31 Temperature Pulse Rate 81 79 84 Pulse Rate [Pulse Oximeter] Respiratory Rate Blood Pressure 125/70 Blood Pressure [Le ft Arm] Blood Pressure [Ri ght Arm] Pulse Oximetry 91 90 89 Oxygen Delivery Me thod Oxygen Flow Rate 06/10/24 20:05 06/10/24 20:05 06/10/24 22:19 Temperature 98.2 F 98.1 F Pulse Rate Pulse Rate [Pulse Oximeter] 83 Respiratory Rate 16 16 Blood Pressure Blood Pressure [Le ft Arm] Blood Pressure [Ri ght Arm] 141/75 H 126/75 Pulse Oximetry 89 93 Oxygen Delivery Me thod Room Air Room Air Room Air Oxygen Flow Rate 06/11/24 02:25 06/11/24 08:24 06/11/24 08:24 Temperature 98.3 F Pulse Rate Pulse Rate [Pulse Oximeter] 80 113 H 113 H Respiratory Rate 20 24 24 Blood Pressure Blood Pressure [Le ft Arm] 92/73 Blood Pressure [Ri ght Arm] 163/97 H 90/60 Pulse Oximetry 95 91 Oxygen Delivery Me thod Room Air Room Air Oxygen Flow Rate 06/11/24 13:10 06/11/24 13:15 06/11/24 13:20 Temperature 97 F L Pulse Rate 88 86 84 Pulse Rate [Pulse Oximeter] Respiratory Rate 14 14 14 Blood Pressure 116/66 113/70 115/69 Blood Pressure [Le ft Arm] Blood Pressure [Ri ght Arm] Pulse Oximetry 92 92 94 Oxygen Delivery Me thod Room Air Room Air Room Air Oxygen Flow Rate 06/11/24 13:25 06/11/24 13:30 06/11/24 13:35 Temperature Pulse Rate 86 86 93 Pulse Rate [Pulse Oximeter] Respiratory Rate 12 14 14 Blood Pressure 114/66 113/72 112/65 Blood Pressure [Le ft Arm] Blood Pressure [Ri ght Arm] Pulse Oximetry 92 91 93 Oxygen Delivery Me thod Room Air Room Air Room Air Oxygen Flow Rate 06/11/24 13:40 06/11/24 13:45 06/11/24 13:50 Temperature 97.2 F L Pulse Rate 90 93 90 Pulse Rate [Pulse Oximeter] Respiratory Rate 14 14 14 Blood Pressure 109/70 115/63 103/71 Blood Pressure [Le ft Arm] Blood Pressure [Ri ght Arm] Pulse Oximetry 97 96 95 Oxygen Delivery Me thod Nasal Cannula Nasal Cannula Nasal Cannula Oxygen Flow Rate 3 3 3 06/11/24 14:00 06/11/24 14:15 06/11/24 14:17 Temperature Pulse Rate 102 H 100 97 Pulse Rate [Pulse Oximeter] Respiratory Rate 16 16 16 Blood Pressure 116/75 115/70 118/71 Blood Pressure [Le ft Arm] Blood Pressure [Ri ght Arm] Pulse Oximetry 90 90 89 Oxygen Delivery Me thod Room Air Room Air Room Air Oxygen Flow Rate 06/11/24 14:30 06/11/24 14:45 Temperature Pulse Rate 90 85 Pulse Rate [Pulse Oximeter] Respiratory Rate 16 Blood Pressure 111/66 109/62 Blood Pressure [Le ft Arm] Blood Pressure [Ri ght Arm] Pulse Oximetry 92 96 Oxygen Delivery Me thod Room Air Nasal Cannula Oxygen Flow Rate 3 Labs Labs: Laboratory Results - last 24 hr 06/10/24 06/10/24 06/10/24 15:54 16:23 16:23 WBC 10.88 RBC 4.02 Hgb 12.7 Hct 38.0 MCV 95 MCH 32 MCHC 33 RDW Coeff of Sixt[place] 12.1 Plt Count 212 Neut % (Auto) 89.7 H Lymph % (Auto) 6.9 L [place] % (Auto) 3.1 Eos % (Auto) 0.0 Baso % (Auto) 0.2 Neut # (Auto) 9.80 H Lymph # (Auto) 0.80 L [place] # (Auto) 0.30 Eos # (Auto) 0.00 Baso # (Auto) 0.02 Abs Immat Gran (auto) 0.01 Imm/Tot Granulo (auto) 0.1 Sodium 133 L Potassium 4.0 Chloride 102 Carbon Dioxide 24 Anion Gap 7 BUN 14 Creatinine 0.6 Estimated Creat Clear 44.10 Estimated GFR 92 Glucose 162 H Lactate 1.7 Calcium 9.4 Total Bilirubin 0.8 AST 30 ALT 17 Alkaline Phosphatase 98 C-Reactive Protein < 0.5 L Total Protein 7.0 Albumin 4.3 Lipase 85 Cancelled Procalcitonin Urine Color Urine Appearance Urine pH Ur Specific [place] Urine Protein Urine Glucose (UA) Urine Ketones Urine Blood Urine Nitrite Urine Bilirubin Urine Urobilinogen Ur Leukocyte Esterase Urine RBC Urine WBC Urine WBC Clumps Ur Squamous Epith Cells Amorphous Sediment Urine Bacteria Lab Acknowledgement POC Creatinine 0.6 06/10/24 06/11/24 06/11/24 17:50 06:39 08:03 WBC 16.92 H RBC 4.78 Hgb 15.0 Hct 45.3 MCV 95 MCH 31 MCHC 33 RDW Coeff of [place]xt[place] 12.2 Plt Count 242 Neut % (Auto) 83.1 H Lymph % (Auto) 7.7 L [place] % (Auto) 9.0 Eos % (Auto) 0.0 Baso % (Auto) 0.1 Neut # (Auto) 14.10 H Lymph # (Auto) 1.30 [place] # (Auto) 1.50 H Eos # (Auto) 0.00 Baso # (Auto) 0.00 Abs Immat Gran (auto) 0.00 Imm/Tot Granulo (auto) 0.1 Sodium 136 Potassium 4.0 Chloride 103 Carbon Dioxide 23 Anion Gap 10 BUN 16 Creatinine 0.7 Estimated Creat Clear 44.10 Estimated GFR 89 Glucose 151 H Lactate Calcium 9.3 Total Bilirubin AST ALT Alkaline Phosphatase C-Reactive Protein Total Protein Albumin Lipase Procalcitonin 0.11 Urine Color Yellow Urine Appearance Clear Urine pH 8.5 Ur Specific [place] 1.015 Urine Protein Negative Urine Glucose (UA) Negative Urine Ketones 1+ A Urine Blood Negative Urine Nitrite Negative Urine Bilirubin Negative Urine Urobilinogen 1.0 Ur Leukocyte Esterase Negative Urine RBC 0-2 Urine WBC 0-2 Urine WBC Clumps None Ur Squamous Epith Cells Few Amorphous Sediment Moderate A Urine Bacteria None Lab Acknowledgement Test Added POC Creatinine
[2024-06-11] MEDS: ACETAMINOPHEN 325 MG TABLET 650 MG PO (16:18)
--- NOTE | 2024-06-11 18:57 | PC.NURSE ---
Nursing Care Hours: 8715-8113 Pt this shift in distress with nausea and pain. Pain rated 7/10, treated per eMAR. Nausea accompanied with dry heaving, treated with zofran IV. Large output from NG tube, brown in color. C/o feeling lightheaded and dizzy. Pt face pale, BP running soft see VS. Taken to surgery around 1330, arrived around 1600, Pain 7/10 with sharp intermittent cramping. Ice and pain meds given. Pt rested for a long while and woke up stating I had the best sleep in my life, and pain 3-4/10. Bowels are hypoactive. Bandage CDI. NG left in place at LIS. allowed to have sips and chips of clear fluids. Tolerated ice and small sips of soda. Up to chair and went for walk in the halls with staff, tolerated well. IV patent. No void at this time.
[2024-06-12] VITALS (7 sets, daily range): BP systolic 116–146; BP diastolic 64–93; PULSE 93–109; RESP 16–18; TEMP 36.5–37.2; O2SAT 91–93
[2024-06-12] MEDS: LACTATED RINGERS 1000 ML 1,000 ML 125 ML IV ×3 (00:55→19:51)
[2024-06-12] MEDS: ACETAMINOPHEN 325 MG TABLET 650 MG PO ×3 (01:10→21:51)
[2024-06-12] MEDS: HYDROCODONE-ACETAMIN 5-325 MG 1 TAB PO ×3 (06:42→21:51)
--- NOTE | 2024-06-12 07:04 | PC.NURSE ---
Pt is alert and oriented x3. Afebrile. Pt reports 3-6/10 pain in abdomen, 6/10 with movement, pain managed with PRN medications. Pt?s NG tube is patent and draining liquid pt had 300 ml of dark brown/green output. Pt is up SBA with IV pole. ?
[2024-06-12 08:36] LABS: Anion Gap 5 mEq/L (7-15); Blood Urea Nitrogen* 26 mg/dL (7-30); Calcium* 8.6 mg/dL (8.4-10.6); Carbon Dioxide* 31 mmol/L (20-32); Chloride* 100 mmol/L (96-114); Creatinine* 0.8 mg/dL (0.5-1.5); Estimated Glomerular Filt Rate 76 ml/min; Glucose* 101 mg/dL (60-115); Sodium* 136 mmol/L (135-149)
[2024-06-12 08:53] LABS: Hematocrit 42.5 % (33.0-51.0); Hemoglobin* 13.9 gm/dL (12.0-16.0); Mean Corpuscular HGB Conc 33 gm/dL (32-36); Mean Corpuscular Hemoglobin 31 pg (26-34); Mean Corpuscular Volume 96 fL (80-100); Platelet Count* 184 K/uL (140-440); Red Blood Count 4.42 m/uL (4.00-5.20); Slide Review Reflex No; White Blood Count* 11.03 K/uL (4.50-11.00)
[2024-06-12] MEDS: SODIUM CHLORIDE 0.9 % (FLUSH) 10 ML SYRINGE 5 ML IVF (11:30)
--- NOTE | 2024-06-12 11:36 | PM.GSPN ---
Subjective Subjective Date Seen: 06/12/24 Interval history: Ira did not sleep well last night. Abdomen remains distended. Has been taking in some p.o.. NG has been to suction intermittently. Exam Narrative: Exam Narrative: General: No acute distress CV: Mild tachycardia with heart rate up to 100 at times. Pulmonary: Lungs are clear. Patient is respiratory effort is slightly decreased secondary to distended abdomen. She is on 0.5 via nasal cannula Abdomen: Distended. Dressing is clean and dry. No erythema noted on abdominal wall. Const: Vital Signs, click to edit/add: Vital Signs - 24 hr 06/11/24 13:10 06/11/24 13:15 06/11/24 13:20 Temperature 97 F L Pulse Rate 88 86 84 Pulse Rate [Pulse Oximeter] Respiratory Rate 14 14 14 Blood Pressure 116/66 113/70 115/69 Blood Pressure [Ri ght Arm] Pulse Oximetry 92 92 94 Oxygen Delivery Me thod Room Air Room Air Room Air Oxygen Flow Rate 06/11/24 13:25 06/11/24 13:30 06/11/24 13:35 Temperature Pulse Rate 86 86 93 Pulse Rate [Pulse Oximeter] Respiratory Rate 12 14 14 Blood Pressure 114/66 113/72 112/65 Blood Pressure [Ri ght Arm] Pulse Oximetry 92 91 93 Oxygen Delivery Me thod Room Air Room Air Room Air Oxygen Flow Rate 06/11/24 13:40 06/11/24 13:45 06/11/24 13:50 Temperature 97.2 F L Pulse Rate 90 93 90 Pulse Rate [Pulse Oximeter] Respiratory Rate 14 14 14 Blood Pressure 109/70 115/63 103/71 Blood Pressure [Ri ght Arm] Pulse Oximetry 97 96 95 Oxygen Delivery Me thod Nasal Cannula Nasal Cannula Nasal Cannula Oxygen Flow Rate 3 3 3 06/11/24 14:00 06/11/24 14:15 06/11/24 14:17 Temperature Pulse Rate 102 H 100 97 Pulse Rate [Pulse Oximeter] Respiratory Rate 16 16 16 Blood Pressure 116/75 115/70 118/71 Blood Pressure [Ri ght Arm] Pulse Oximetry 90 90 89 Oxygen Delivery Me thod Room Air Room Air Room Air Oxygen Flow Rate 06/11/24 14:30 06/11/24 14:45 06/11/24 15:00 Temperature Pulse Rate 90 85 Pulse Rate [Pulse Oximeter] Respiratory Rate 16 Blood Pressure 111/66 109/62 Blood Pressure [Ri ght Arm] Pulse Oximetry 92 96 95 Oxygen Delivery Me thod Room Air Nasal Cannula Oxygen Flow Rate 3 06/11/24 15:00 06/11/24 15:00 06/11/24 22:03 Temperature 98.4 F Pulse Rate Pulse Rate [Pulse Oximeter] 85 97 Respiratory Rate 16 16 18 Blood Pressure Blood Pressure [Ri ght Arm] 119/81 Pulse Oximetry 95 90 Oxygen Delivery Me thod Nasal Cannula Room Air Oxygen Flow Rate 1 06/11/24 23:00 06/11/24 23:00 06/12/24 01:05 Temperature 97.7 F Pulse Rate Pulse Rate [Pulse Oximeter] 100 Respiratory Rate 16 16 Blood Pressure Blood Pressure [Ri ght Arm] 119/70 Pulse Oximetry 90 91 91 Oxygen Delivery Me thod Room Air Nasal Cannula Oxygen Flow Rate 0.5 Labs/Imaging Labs Labs: White blood cell count is 11 from 16. Electrolytes within normal limits. Progress Note:A&P Assessment and plan (1) Status post exploratory laparotomy: Status: Acute Assessment and Plan: The patient is a 78-year-old female who is postop day 1 status post exploratory laparotomy and reduction of closed loop bowel obstruction presumably from an internal hernia from adhesive band. She did not require bowel resection, however the bowel was quite inflamed and she will likely have prolonged ileus. -okay for sips and chips and small amounts of liquids from the kitchen at -recommend keeping the NG in place. This can be placed to suction when she is not taking in p.o.. If her output is high today then I would recommend leaving the NG in place tomorrow. If it is low it could potentially be removed tomorrow. -discussed with the patient the use of a suppository given that a lot of her abdominal distention is secondary to colonic stool and gas. This was ordered. Patient can decide if she would like to take it. -recommend incentive spirometry, ambulation -okay for Lovenox DVT prophylaxis. -patient would like to try to minimize narcotics, however Tylenol has not been enough for her pain control. She does have a solitary kidney, therefore will avoid NSAIDs.
--- NOTE | 2024-06-12 14:09 | PM.IMPN1 ---
Progress Note: A&P Assessment and plan (1) Small bowel obstruction: Problem details: CT shows Small-bowel obstruction with transition point in the left mid hemiabdomen, suspect on the basis of an adhesion History of previous kidney surgery POD# 1 s/p exploratory laparotomy, reduction of closed loop small-bowel obstruction. NGT to remain in place. Per general surgery, okay for small amount of clears Pain and nausea management as needed Status: Acute (2) Constipation: Problem details: Lifelong problem. Recommend more aggressive laxative use chronically General surgery ordered suppository / Status: Acute (3) Hyperlipidemia: Problem details: Hold statin for now Status: Acute Plan Awaiting return of bowel function, NGT in place for now, following general surgery recommendations Time Spent With Patient Total time spent: Total time spent caring for the patient today was 45 minutes. This includes time spent for the visit reviewing the chart, time spent during the visit, time spent after the visit and documentation and planning in coordination of care. Subjective Date Seen: 06/12/24 Interval history: Patient reports feeling much better this morning. Still has some abdominal distension and discomfort but improved postoperatively. Tolerating slow advance in diet. No nausea or vomiting. Denies headache or dizziness. Denies chest pain or shortness of breath. Admits she has got a lot of stressors right now with work and family. Exam Narrative: Exam Narrative: PHYSICAL EXAM General: Pleasant, conversant, appears much more comfortable today, NAD Cardiovascular: RRR, S1S2. No pitting edema Pulmonary: CTA bilaterally without rhonchi, rales, expiratory wheezes. No dyspnea on room air Abdominal: Distended, mild diffuse tenderness, no guarding Extremities: No gross joint deformity or swelling. AROMI. Neurovascularly intact Skin: Warm, dry. Const: Vital Signs, click to edit/add: Vital Signs - 24 hr 06/11/24 14:15 06/11/24 14:17 06/11/24 14:30 Temperature Pulse Rate 100 97 90 Pulse Rate [Pulse Oximeter] Respiratory Rate 16 16 16 Blood Pressure 115/70 118/71 111/66 Blood Pressure [Le ft Arm] Blood Pressure [Ri ght Arm] Pulse Oximetry 90 89 92 Oxygen Delivery Me thod Room Air Room Air Room Air Oxygen Flow Rate 06/11/24 14:45 06/11/24 15:00 06/11/24 15:00 Temperature Pulse Rate 85 Pulse Rate [Pulse Oximeter] 85 Respiratory Rate 16 Blood Pressure 109/62 Blood Pressure [Le ft Arm] Blood Pressure [Ri ght Arm] Pulse Oximetry 96 95 Oxygen Delivery Me thod Nasal Cannula Oxygen Flow Rate 3 06/11/24 15:00 06/11/24 22:03 06/11/24 23:00 Temperature 98.4 F Pulse Rate Pulse Rate [Pulse Oximeter] 97 Respiratory Rate 16 18 Blood Pressure Blood Pressure [Le ft Arm] Blood Pressure [Ri ght Arm] 119/81 Pulse Oximetry 95 90 90 Oxygen Delivery Me thod Nasal Cannula Room Air Oxygen Flow Rate 1 06/11/24 23:00 06/12/24 01:05 06/12/24 09:00 Temperature 97.7 F Pulse Rate Pulse Rate [Pulse Oximeter] 100 Respiratory Rate 16 16 Blood Pressure Blood Pressure [Le ft Arm] Blood Pressure [Ri ght Arm] 119/70 Pulse Oximetry 91 91 91 Oxygen Delivery Me thod Room Air Nasal Cannula Oxygen Flow Rate 0.5 06/12/24 09:00 06/12/24 09:00 06/12/24 09:00 Temperature 98.1 F Pulse Rate Pulse Rate [Pulse Oximeter] 93 93 Respiratory Rate 16 18 18 Blood Pressure Blood Pressure [Le ft Arm] 122/81 Blood Pressure [Ri ght Arm] Pulse Oximetry 91 91 Oxygen Delivery Me thod Room Air Room Air Oxygen Flow Rate 06/12/24 13:00 Temperature Pulse Rate Pulse Rate [Pulse Oximeter] 109 H Respiratory Rate 18 Blood Pressure Blood Pressure [Le ft Arm] 122/64 Blood Pressure [Ri ght Arm] Pulse Oximetry 93 Oxygen Delivery Me thod Room Air Oxygen Flow Rate Labs Labs: Laboratory Results - last 24 hr 06/12/24 06:28 WBC 11.03 H RBC 4.42 Hgb 13.9 Hct 42.5 MCV 96 MCH 31 MCHC 33 Plt Count 184 Sodium 136 Potassium 4.0 Chloride 100 Carbon Dioxide 31 Anion Gap 5 L BUN 26 Creatinine 0.8 Estimated Creat Clear 44.10 Estimated GFR 76 Glucose 101 Calcium 8.6
[2024-06-12] MEDS: BENZOCAINE/MENTHOL 1 EACH LOZENGE MUCOUS MEM (15:51)
--- NOTE | 2024-06-12 20:00 | PC.NURSE ---
Nursing Care Hours: [id number] Pt this shift calm and cooperative, alert and oriented. Reporting pain 3-5/10, treated per eMAR. VSS. NG was clamped from 0700 to 0900, belly was distended so LIS restarted, 140ml output received. Clamped NG again around 1100, pt drank small amounts of fluids, walked trivedi x2. NG set back to LIS at 1700 when pt c/o distention. Another 140ml received. Bandage to abdomen CDI, BS hypoactive. C/o pain in throat, lozenge ordered. IS at 750 to 1000ml. Moist cough and SOB noted when ambulating, spo2 94% when back in chair.
[2024-06-12] MEDS: ENOXAPARIN 40 MG/0.4 ML INJ SUBCUT (21:52)
[2024-06-13 02:20] VITALS: BP 134/70; PULSE 97; RESP 18; TEMP 36.8; O2SAT 92
[2024-06-13] MEDS: LACTATED RINGERS 1000 ML 1,000 ML 125 ML IV ×3 (03:56→19:58)
[2024-06-13 06:28] LABS: Hematocrit 33.6 % (33.0-51.0); Hemoglobin* 11.1 gm/dL (12.0-16.0); Mean Corpuscular HGB Conc 33 gm/dL (32-36); Mean Corpuscular Hemoglobin 32 pg (26-34); Mean Corpuscular Volume 96 fL (80-100); Platelet Count* 189 K/uL (140-440); Red Blood Count 3.49 m/uL (4.00-5.20); White Blood Count* 11.21 K/uL (4.50-11.00)
[2024-06-13 06:40] LABS: Slide Review Reflex No
[2024-06-13 06:58] LABS: Chloride* 102 mmol/L (96-114)
[2024-06-13 06:59] LABS: Potassium* 3.6 mmol/L (3.6-5.1); Sodium* 133 mmol/L (135-149)
[2024-06-13 07:01] LABS: Creatinine* 0.7 mg/dL (0.5-1.5); Estimated Glomerular Filt Rate 89 ml/min
[2024-06-13 07:02] LABS: Anion Gap 3 mEq/L (7-15); Blood Urea Nitrogen* 19 mg/dL (7-30); Calcium* 8.3 mg/dL (8.4-10.6); Carbon Dioxide* 28 mmol/L (20-32); Glucose* 70 mg/dL (60-115)
--- NOTE | 2024-06-13 07:57 | PC.NURSE ---
Pt is alert and oriented x3. Afebrile. Pt reports 3-4/10 pain in abdomen, pain managed with PRN medications. Pt?s NG tube?was clamped at 2155 pt tolerating well. Pt started to pass gas at 0630 this morning when up to bathroom. Pt?s midline dressing is CDI. Pt is up SBA with IV pole, voiding and tolerating?liquid diet. ?
[2024-06-13 08:15] VITALS: BP 137/83; PULSE 92; RESP 18; TEMP 36.5; O2SAT 94
[2024-06-13 11:00] VITALS: BP 147/83; PULSE 89; RESP 18; TEMP 36.1; O2SAT 93
--- NOTE | 2024-06-13 11:42 | PC.NURSE ---
Nursing Care Hours: [id number] Pt calm and cooperative, alert and oriented. Pain controlled, nothing given this shift. NG clamped since 2200 yesterday. Some distention noted but pt comfortable and reports passing gas x2. Denies nausea. VSS. Tolerated jello this AM. Schedule written on board to walk halls with assist Q2H. Two walks done this shift, tolerating well but c/o feeling weak. IV remains patent and running fluids.
--- NOTE | 2024-06-13 11:51 | PM.IMPN1 ---
Progress Note: A&P Assessment and plan (1) Small bowel obstruction: Problem details: CT shows Small-bowel obstruction with transition point in the left mid hemiabdomen, suspect on the basis of an adhesion History of previous kidney surgery POD# 2 s/p exploratory laparotomy, reduction of closed loop small-bowel obstruction. Passing gas. NGT in place, clamped, continue clears WBC unchanged. Slight decrease in sodium, 133 Pain and nausea management as needed. Encourage ambulation Status: Acute (2) Constipation: Problem details: Lifelong problem. Recommend more aggressive laxative use chronically General surgery ordered suppository prn Status: Acute (3) Hyperlipidemia: Problem details: Hold statin for now Status: Acute Plan NGT in place, clamped, clears, ambulation, following general surgery recommendations Time Spent With Patient Total time spent: Total time spent caring for the patient today was 45 minutes. This includes time spent for the visit reviewing the chart, time spent during the visit, time spent after the visit and documentation and planning in coordination of care. Subjective Date Seen: 06/13/24 Interval history: Patient is seen sitting up in a chair this morning. Continues to slowly improve. Feeling better. Tolerating clears without nausea vomiting or increasing abdominal pain. NG is in place and has been clamped overnight. Remains distended. Passing gas this morning. Has remained afebrile. Exam Narrative: Exam Narrative: PHYSICAL EXAM General: Pleasant, conversant, NAD Cardiovascular: RRR, S1S2. No pitting edema Pulmonary: CTA bilaterally without rhonchi, rales, expiratory wheezes. No dyspnea on room air Abdominal: Distended, mild diffuse tenderness, no guarding, NGT to clamp Extremities: No gross joint deformity or swelling. AROMI. Neurovascularly intact Skin: Warm, dry. Const: Vital Signs, click to edit/add: Vital Signs - 24 hr 06/12/24 13:00 06/12/24 15:00 06/12/24 15:00 Temperature Pulse Rate [Pulse Oximeter] 109 H 98 Respiratory Rate 18 18 Blood Pressure [Le ft Arm] 122/64 Blood Pressure [Ri ght Arm] Pulse Oximetry 93 92 Oxygen Delivery Me thod Room Air Oxygen Flow Rate 06/12/24 15:00 06/12/24 15:00 06/12/24 20:00 Temperature 97.9 F 97.9 F Pulse Rate [Pulse Oximeter] 98 99 Respiratory Rate 18 18 18 Blood Pressure [Le ft Arm] 116/93 H 130/73 Blood Pressure [Ri ght Arm] Pulse Oximetry 92 92 92 Oxygen Delivery Me thod Room Air Room Air Room Air Oxygen Flow Rate 06/12/24 22:00 06/12/24 22:21 06/12/24 22:21 Temperature 98.9 F Pulse Rate [Pulse Oximeter] 99 Respiratory Rate 18 18 Blood Pressure [Le ft Arm] Blood Pressure [Ri ght Arm] 146/82 H Pulse Oximetry 91 91 Oxygen Delivery Me thod Room Air Oxygen Flow Rate 06/12/24 22:21 06/13/24 02:20 06/13/24 08:15 Temperature 98.3 F Pulse Rate [Pulse Oximeter] 97 Respiratory Rate 18 18 Blood Pressure [Le ft Arm] Blood Pressure [Ri ght Arm] 134/70 Pulse Oximetry 91 92 94 Oxygen Delivery Me thod Nasal Cannula Nasal Cannula Oxygen Flow Rate 0.5 0.5 06/13/24 08:15 06/13/24 08:15 06/13/24 08:15 Temperature 97.7 F Pulse Rate [Pulse Oximeter] 92 92 Respiratory Rate 18 18 18 Blood Pressure [Le ft Arm] 137/83 Blood Pressure [Ri ght Arm] Pulse Oximetry 94 94 Oxygen Delivery Me thod Room Air Room Air Oxygen Flow Rate Labs Labs: Laboratory Results - last 24 hr 06/13/24 06:05 WBC 11.21 H RBC 3.49 L Hgb 11.1 L Hct 33.6 MCV 96 MCH 32 MCHC 33 Plt Count 189 Sodium 133 L Potassium 3.6 Chloride 102 Carbon Dioxide 28 Anion Gap 3 L BUN 19 Creatinine 0.7 Estimated Creat Clear 44.10 Estimated GFR 89 Glucose 70 Calcium 8.3 L
[2024-06-13] MEDS: BENZOCAINE/MENTHOL 1 EACH LOZENGE MUCOUS MEM (11:52)
--- NOTE | 2024-06-13 13:17 | PM.GSPN ---
Subjective Subjective Date Seen: 06/13/24 Interval history: With is doing better today. She has been tolerating small amount of clears. NG output has not been significant. She had it clamped since 10:00 p.m. without any nausea. Her pain is better. She is only taking a small amount of oral hydrocodone. She states she has passed a small amount of gas. Exam Narrative: Exam Narrative: General: No acute distress Abdomen: Markedly distended. Ecchymosis around incision, however no erythema. Patient does have positive bowel sounds. Const: Vital Signs, click to edit/add: Vital Signs - 24 hr 06/12/24 15:00 06/12/24 15:00 06/12/24 15:00 Temperature Pulse Rate [Pulse Oximeter] 98 Respiratory Rate 18 18 Blood Pressure [Le ft Arm] Blood Pressure [Ri ght Arm] Pulse Oximetry 92 92 Oxygen Delivery Me thod Room Air Oxygen Flow Rate 06/12/24 15:00 06/12/24 20:00 06/12/24 22:00 Temperature 97.9 F 97.9 F 98.9 F Pulse Rate [Pulse Oximeter] 98 99 99 Respiratory Rate 18 18 18 Blood Pressure [Le ft Arm] 116/93 H 130/73 Blood Pressure [Ri ght Arm] 146/82 H Pulse Oximetry 92 92 91 Oxygen Delivery Me thod Room Air Room Air Room Air Oxygen Flow Rate 06/12/24 22:21 06/12/24 22:21 06/12/24 22:21 Temperature Pulse Rate [Pulse Oximeter] Respiratory Rate 18 18 Blood Pressure [Le ft Arm] Blood Pressure [Ri ght Arm] Pulse Oximetry 91 91 Oxygen Delivery Me thod Nasal Cannula Oxygen Flow Rate 0.5 06/13/24 02:20 06/13/24 08:15 06/13/24 08:15 Temperature 98.3 F Pulse Rate [Pulse Oximeter] 97 92 Respiratory Rate 18 18 Blood Pressure [Le ft Arm] Blood Pressure [Ri ght Arm] 134/70 Pulse Oximetry 92 94 Oxygen Delivery Me thod Nasal Cannula Oxygen Flow Rate 0.5 06/13/24 08:15 06/13/24 08:15 06/13/24 11:00 Temperature 97.7 F 97.0 F L Pulse Rate [Pulse Oximeter] 92 89 Respiratory Rate 18 18 18 Blood Pressure [Le ft Arm] 137/83 147/83 H Blood Pressure [Ri ght Arm] Pulse Oximetry 94 94 93 Oxygen Delivery Me thod Room Air Room Air Room Air Oxygen Flow Rate Labs/Imaging Labs Labs: White blood cell count is unchanged at 11. Hemoglobin down slightly to 11.9 Mild hyponatremia with sodium of 133. Remainder of electrolytes are normal. Progress Note:A&P Assessment and plan (1) Status post exploratory laparotomy: Status: Acute (2) Constipation: Status: Acute Plan The patient is 78-year-old female who is postop day 2 status post ex lap and reduction of closed loop small bowel obstruction. Overall she is doing well. She has significant abdominal distention which was present preop and I think likely secondary to a large amount of colonic stool and air burden. I did suggest she could try a suppository if she would like, however will likely just take time for this to resolve. The patient prefers to keep her NG in today as she does not want to have to be replaced. I think this is reasonable but would not advance her diet until her NG tube is out. -continue Lovenox for DVT prophylaxis -continue sips of liquids -continue to work on ambulation and incentive spirometry.
[2024-06-13] MEDS: SIMETHICONE 80 MG TAB.CHEW PO (14:13)
[2024-06-13 15:00] VITALS: BP 153/85; PULSE 92; RESP 16; RESP 18; TEMP 36.6; O2SAT 94
[2024-06-13 20:00] VITALS: BP 151/84; PULSE 88; RESP 16; TEMP 36.7; O2SAT 94
--- NOTE | 2024-06-13 21:23 | PC.NURSE ---
Retort Pre Cooker entered patients chart after answering call light, primary nurse unavailable.
[2024-06-13] MEDS: SODIUM CHLORIDE 0.9 % (FLUSH) 10 ML SYRINGE 5 ML IVF (21:43)
[2024-06-13] MEDS: ENOXAPARIN 40 MG/0.4 ML INJ SUBCUT (21:43)
[2024-06-13] MEDS: hydrOXYzine pamoate 25 MG CAPSULE PO (21:44)
[2024-06-13 23:00] VITALS: BP 150/103; PULSE 86; RESP 18; TEMP 36.4; O2SAT 95
[2024-06-14] VITALS (7 sets, daily range): BP systolic 139–167; BP diastolic 75–90; PULSE 79–92; RESP 16–20; TEMP 36.3–37; O2SAT 92–96
[2024-06-14] MEDS: BENZOCAINE/MENTHOL 1 EACH LOZENGE MUCOUS MEM (00:12)
[2024-06-14] MEDS: MAG HYDROX/ALUMINUM HYD/SIMETH 30 ML ORAL.SUSP 15 ML PO (01:09)
[2024-06-14] MEDS: LACTATED RINGERS 1000 ML 1,000 ML 125 ML IV (04:07)
[2024-06-14 06:21] LABS: Hematocrit 35.2 % (33.0-51.0); Hemoglobin* 11.8 gm/dL (12.0-16.0); Mean Corpuscular HGB Conc 34 gm/dL (32-36); Mean Corpuscular Hemoglobin 32 pg (26-34); Mean Corpuscular Volume 94 fL (80-100); Platelet Count* 225 K/uL (140-440); Red Blood Count 3.74 m/uL (4.00-5.20); White Blood Count* 11.25 K/uL (4.50-11.00)
[2024-06-14 06:25] LABS: Slide Review Reflex No
[2024-06-14 06:37] LABS: Chloride* 100 mmol/L (96-114)
[2024-06-14 06:38] LABS: Potassium* 3.4 mmol/L (3.6-5.1); Sodium* 133 mmol/L (135-149)
[2024-06-14 06:40] LABS: Creatinine* 0.5 mg/dL (0.5-1.5); Estimated Glomerular Filt Rate 97 ml/min
[2024-06-14 06:41] LABS: Anion Gap 9 mEq/L (7-15); Blood Urea Nitrogen* 14 mg/dL (7-30); Calcium* 8.5 mg/dL (8.4-10.6); Carbon Dioxide* 24 mmol/L (20-32); Glucose* 88 mg/dL (60-115)
--- NOTE | 2024-06-14 06:56 | PC.NURSE ---
END OF SHIFT NOTE: PT WITH C/O GAS AND EPIGASTRIC DISCOMFORT 2-07/09. PRN MEDICATIONS ADMINISTERED WITH RELIEF (SEE EMAR). A&Ox4. DENIES CP, SOB, N/V. AMBULATES WITH SBA WITHIN ROOM. NG IN PLACE BUT REMAINS CLAMPED. PT ABDOMEN WAS DISTENDED; PT REPORTED AFTER PASSING FLATUS TO FEELING LESS BLOATED. BED ALARM ON AND CALL LIGHT WITHIN PT?S REACH.
--- NOTE | 2024-06-14 09:12 | CRLHL7_ITS ---
For Patients: As a result of the Cures Act, medical imaging exams and procedure reports are released immediately into your electronic medical record. You may view this report before your referring provider. If you have questions, please contact your health care provider. INDICATION: Postop fever and leukocytosis COMPARISON: There are no prior studies for comparison TECHNIQUE: A single view study was obtained as a portable CXRJuly 2023 at 09:43 FINDINGS: As discussed below IMPRESSION: 1. Heart size normal. 2. Bibasilar opacities favor atelectasis over aspiration or pneumonia. 3. No large effusion and no pneumothorax. 4. Old right clavicular fracture. Dictated by Saran Evangelista MD @ 06/14/2024 9:55:52 AM (Electronically Signed)
--- NOTE | 2024-06-14 10:03 | P.IMPN_ITS ---
Progress Note: A&P Assessment and plan (1) Small bowel obstruction: Problem details: CT shows Small-bowel obstruction with transition point in the left mid hemiabdomen, suspect on the basis of an adhesion History of previous kidney surgery S/p exploratory laparotomy, reduction of closed loop small-bowel obstruction 06/11 Mild hyponatremia, 133. Potassium 3.4, will replace with 2 oral doses effervescent. WBC sustained just over 11, afebrile, no new signs/symptoms. UA and BC x1 ordered. Repeat CXR shows bibasilar opacities for which atelectasis is favored over aspiration or pneumonia. Pain and nausea management as needed. Encourage ambulation 06/14: Per Dr. Ho, falguni to remove NGT, continue clears, IVF stopped for now encouraging increase oral intake, okay to shower Status: Acute (2) Constipation: Problem details: Lifelong problem. Recommend more aggressive laxative use chronically Encourage ambulation General surgery ordered suppository prn Status: Acute (3) Hyperlipidemia: Problem details: Resume statin Status: Acute Plan Clears, ambulation, following general surgery recommendations Time Spent With Patient Total time spent: Total time spent caring for the patient today was 45 minutes. This includes time spent for the visit reviewing the chart, time spent during the visit, time spent after the visit and documentation and planning in coordination of care. Subjective Date Seen: 06/14/24 Interval history: When initially seen this morning, patient is sitting in a chair, appears quite burdened. Reports feeling quite frustrated and stressed. Has been told that recovery is slow but wasn't prepared for the set backs. Pain is otherwise adequately managed. No worse with clears. Denies nausea, vomiting. Still not much of an appetite. Passing more gas. No BM yet. Remains vitally stable. No fevers. White count remains unchanged, just over 11. Exam Narrative: Exam Narrative: PHYSICAL EXAM General: Pleasant, mood is down, otherwise NAD Cardiovascular: RRR, S1S2. No pitting edema Pulmonary: CTA bilaterally without rhonchi, rales, expiratory wheezes. No dyspnea on room air Abdominal: Distended, mild diffuse tenderness, no guarding, NGT to clamp Extremities: No gross joint deformity or swelling. AROMI. Neurovascularly intact Skin: Warm, dry. Const: Vital Signs, click to edit/add: Vital Signs - 24 hr 06/13/24 11:00 06/13/24 15:00 06/13/24 15:00 Temperature 97.0 F L Pulse Rate [Pulse Oximeter] 89 92 Respiratory Rate 18 16 Blood Pressure [Le ft Arm] 147/83 H Blood Pressure [Ri ght Arm] Pulse Oximetry 93 94 Oxygen Delivery Me thod Room Air 06/13/24 15:00 06/13/24 15:00 06/13/24 20:00 Temperature 98 F 98.1 F Pulse Rate [Pulse Oximeter] 92 88 Respiratory Rate 18 18 16 Blood Pressure [Le ft Arm] 153/85 H 151/84 H Blood Pressure [Ri ght Arm] Pulse Oximetry 94 94 94 Oxygen Delivery Me thod Room Air Room Air Room Air 06/13/24 20:00 06/13/24 20:00 06/13/24 20:00 Temperature Pulse Rate [Pulse Oximeter] 88 Respiratory Rate 16 16 Blood Pressure [Le ft Arm] Blood Pressure [Ri ght Arm] Pulse Oximetry 94 94 [facility] 06/13/24 23:00 06/13/24 23:00 06/14/24 04:00 Temperature 97.5 F L 97.6 F Pulse Rate [Pulse Oximeter] 86 79 Respiratory Rate 18 18 Blood Pressure [Le ft Arm] Blood Pressure [Ri ght Arm] 150/103 H 155/83 H Pulse Oximetry 95 95 94 [facility] Room Air 06/14/24 07:00 06/14/24 07:00 06/14/24 07:00 Temperature 97.6 F Pulse Rate [Pulse Oximeter] 85 Respiratory Rate 20 Blood Pressure [Le ft Arm] 154/89 H Blood Pressure [Ri ght Arm] Pulse Oximetry 92 92 92 Oxygen Delivery Me thod Room Air Room Air 06/14/24 07:00 Temperature Pulse Rate [Pulse Oximeter] 85 Respiratory Rate 20 Blood Pressure [Le ft Arm] Blood Pressure [Ri ght Arm] Pulse Oximetry Oxygen Delivery Me thod Labs Labs: Laboratory Results - last 24 hr 06/14/24 05:40 WBC 11.25 H RBC 3.74 L Hgb 11.8 L Hct 35.2 MCV 94 MCH 32 MCHC 34 Plt Count 225 Sodium 133 L Potassium 3.4 L Chloride 100 Carbon Dioxide 24 Anion Gap 9 BUN 14 Creatinine 0.5 Estimated Creat Clear 44.10 Estimated GFR 97 Glucose 88 Calcium 8.5
[2024-06-14] MEDS: SODIUM CHLORIDE 0.9 % (FLUSH) 10 ML SYRINGE 5 ML IVF ×2 (10:11→20:27)
[2024-06-14] MEDS: POTASSIUM BICARB 25 MEQ EFFERVESCENT TAB 50 MEQ PO ×2 (10:29→17:33)
[2024-06-14 11:15] LABS: Appearance Urine Clear (Clear); Bilirubin Urine 1+ (Negative); Blood Urine Trace-intact (Negative); Color Urine Yellow (Yellow); Glucose Urine Negative (Negative); Ketones Urine 4+ (Negative); Leukocyte Esterase Urine Negative (Negative); Nitrite Urine Negative (Negative); Protein Urine Trace (Negative); Specific Gravity Urine 1.025 (1.000-1.030)
[2024-06-14 11:37] LABS: RBC Urine 0-2 (0-2); Squamous Epithelial Cell Urine Few (None-Few); WBC Urine 0-2 (0-5)
--- NOTE | 2024-06-14 12:29 | PM.GSPN ---
Subjective Subjective Date Seen: 06/14/24 Interval history: Ira had a rough night because she did not sleep well. She has back pain and neck pain laying in the hospital bed. However this morning her NG was removed and she was able to shower and she feels much better. She states she has been passing copious flatus. She does still have some belching and burping, however. No fevers. Exam Narrative: Exam Narrative: General: No acute distress Respiratory: Breathing is nonlabored on room air Abdomen: Remains distended, however this is softer than yesterday. Incision is clean and dry with a small amount of ecchymosis but no erythema. Const: Vital Signs, click to edit/add: Vital Signs - 24 hr 06/13/24 15:00 06/13/24 15:00 06/13/24 15:00 Temperature Pulse Rate [Pulse Oximeter] 92 Respiratory Rate 16 18 Blood Pressure [Le ft Arm] Blood Pressure [Ri ght Arm] Pulse Oximetry 94 94 Oxygen Delivery Me thod Room Air 06/13/24 15:00 06/13/24 20:00 06/13/24 20:00 Temperature 98 F 98.1 F Pulse Rate [Pulse Oximeter] 92 88 88 Respiratory Rate 18 16 16 Blood Pressure [Le ft Arm] 153/85 H 151/84 H Blood Pressure [Ri ght Arm] Pulse Oximetry 94 94 Oxygen Delivery Al thod Room Air Room Air 06/13/24 20:00 06/13/24 20:00 06/13/24 23:00 Temperature Pulse Rate [Pulse Oximeter] Respiratory Rate 16 Blood Pressure [Le ft Arm] Blood Pressure [Ri ght Arm] Pulse Oximetry 94 94 95 Oxygen Delivery Al thod Room Air 06/13/24 23:00 06/14/24 04:00 06/14/24 07:00 Temperature 97.5 F L 97.6 F Pulse Rate [Pulse Oximeter] 86 79 Respiratory Rate 18 18 Blood Pressure [Le ft Arm] Blood Pressure [Ri ght Arm] 150/103 H 155/83 H Pulse Oximetry 95 94 92 Oxygen Delivery Al thod Room Air Room Air 06/14/24 07:00 06/14/24 07:00 06/14/24 07:00 Temperature 97.6 F Pulse Rate [Pulse Oximeter] 85 85 Respiratory Rate 20 20 Blood Pressure [Le ft Arm] 154/89 H Blood Pressure [Ri ght Arm] Pulse Oximetry 92 92 Oxygen Delivery Me thod Room Air Room Air Labs/Imaging Labs Labs: White blood cell count and hemoglobin are stable today. Imaging Imaging: Chest x-ray done today: IMPRESSION: 1. Heart size normal. 2. Bibasilar opacities favor atelectasis over aspiration or pneumonia. 3. No large effusion and no pneumothorax. 4. Old right clavicular fracture. Dictated by Saran Evangelista MD @ 06/14/2024 9:55:52 AM Progress Note:A&P Assessment and plan (1) Status post exploratory laparotomy: Status: Acute (2) Hypokalemia: Status: Acute (3) Ileus: Status: Acute (4) Constipation: Status: Acute Plan The patient is a 78-year-old female who is postop day 3 from exploratory laparotomy and reduction of closed loop bowel obstruction. She is doing well overall. She is having some return of bowel function, however she is fairly distended. She did have fair amount of stool and gas in her colon preop. I explained to her that this is contributing to her distension, however if she is belching and burping that means that food is not moving through her small intestines well yet. She should continue with very cautious liquids. -she may take a suppository today if she would like this will likely help with some of her abdominal distension, however we should not advance her diet until she is feeling like she would like to eat more and again is having less burping in fullness. -continue Lovenox -continue IS and ambulation
--- NOTE | 2024-06-14 16:46 | PC.NURSE ---
End of Shift Note: Patient had a rough start to the morning as she complained that she did not sleep at all last night. Vitals and assessment done. Patient really wanted to shower. Sent message to provider to see if we could saline lock and discontinue her NG tube. Provider was in agreement with this. Patient was assisted to take a shower. Have strongly encouraged her to ambulate. Have not had her order a tray only taking in some coffee and ice cream and appeared to have tolerated this no complaints of nausea. She has not required anything for pain from me today. Is getting her potassium replaced with oral replacements. Will continue to monitor until next shift arrives.
[2024-06-14] MEDS: MELATONIN 3 MG TABLET PO (20:27)
[2024-06-14] MEDS: SIMVASTATIN 10 MG TABLET PO (20:27)
[2024-06-14] MEDS: ENOXAPARIN 40 MG/0.4 ML INJ SUBCUT (20:27)
[2024-06-14] MEDS: SIMETHICONE 80 MG TAB.CHEW 160 MG PO (22:08)
[2024-06-15] VITALS (8 sets, daily range): BP systolic 131–167; BP diastolic 67–93; PULSE 80–87; RESP 16–20; TEMP 36.3–36.8; O2SAT 94–98
[2024-06-15] MEDS: hydrOXYzine pamoate 25 MG CAPSULE PO (02:46)
[2024-06-15] MEDS: bisacodyL 10 MG SUPP.RECT PR (06:31)
--- NOTE | 2024-06-15 06:41 | PC.NURSE ---
End of shift [id number]: A&O pleasant and cooperative. VSS w/ sats >90% on RA. Pt reports gas discomfort. Ambulation encouraged. Pt walked the length of the until x2 overnight. Suppository given this morning. BS active and pt belching and passing gas this morning. Pt was not able to sleep much overnight. Pt admitted that she is anxious and that could have been keeping her up. Up w/ sba walker and gait belt.
[2024-06-15 06:52] LABS: Chloride* 99 mmol/L (96-114)
[2024-06-15 06:53] LABS: Sodium* 131 mmol/L (135-149)
[2024-06-15 06:55] LABS: Anion Gap 9 mEq/L (7-15); Carbon Dioxide* 23 mmol/L (20-32); Creatinine* 0.6 mg/dL (0.5-1.5); Estimated Glomerular Filt Rate 92 ml/min
[2024-06-15 06:56] LABS: Blood Urea Nitrogen* 14 mg/dL (7-30); Calcium* 8.5 mg/dL (8.4-10.6); Glucose* 83 mg/dL (60-115); Hematocrit 34.1 % (33.0-51.0); Hemoglobin* 11.4 gm/dL (12.0-16.0); Mean Corpuscular HGB Conc 33 gm/dL (32-36); Mean Corpuscular Hemoglobin 31 pg (26-34); Mean Corpuscular Volume 94 fL (80-100); Platelet Count* 235 K/uL (140-440); Red Blood Count 3.63 m/uL (4.00-5.20); White Blood Count* 9.86 K/uL (4.50-11.00)
[2024-06-15 07:00] LABS: Slide Review Reflex No
[2024-06-15] MEDS: SODIUM CHLORIDE 0.9 % (FLUSH) 10 ML SYRINGE 5 ML IVF ×2 (08:13→21:07)
--- NOTE | 2024-06-15 10:37 | P.IMPN_ITS ---
Progress Note: A&P Assessment and plan (1) Small bowel obstruction: Problem details: CT shows Small-bowel obstruction with transition point in the left mid hemiabdomen, suspect on the basis of an adhesion History of previous kidney surgery S/p exploratory laparotomy, reduction of closed loop small-bowel obstruction 06/11 Mild hyponatremia, 133. Potassium 3.4, will replace with 2 oral doses effervescent. WBC sustained just over 11, afebrile, no new signs/symptoms. UA and BC x1 ordered. Repeat CXR shows bibasilar opacities for which atelectasis is favored over aspiration or pneumonia. Pain and nausea management as needed. Encourage ambulation 06/14: Per falguni Carrillo to remove NGT, continue clears, IVF stopped for now encouraging increase oral intake, okay to shower 06/15: BMs after suppository today. Per falguni Carrillo to advance to full diet. Leukocytosis resolved. Kidney functions stable. Mild hyponatremia. Awaiting discharge recommendations. Status: Acute (2) Constipation: Problem details: Lifelong problem. Recommend more aggressive laxative use chronically Encourage ambulation Suppository with several BMs on 06/15 Status: Acute (3) Hyperlipidemia: Problem details: Continue statin Status: Acute (4) Hyponatremia: Problem details: Sodium 131 in setting of reduced oral intake postop. Sodium tablets ordered t.i.d. with meals. Continue to monitor Status: Acute Plan Advancing diet, monitoring sodium, continue to encourage ambulation, awaiting discharge recommendations from General surgery Time Spent With Patient Total time spent: Total time spent caring for the patient today was 45 minutes. This includes time spent for the visit reviewing the chart, time spent during the visit, time spent after the visit and documentation and planning in coordination of care. Subjective Date Seen: 06/15/24 Interval history: Patient continued to slowly improve. Was passing quite a bit of gas yesterday but still distended. Had a suppository this morning and has had her 4th bowel movement. NG was removed yesterday. Tolerating clears without nausea vomiting. Has remained afebrile, vitally stable. Exam Narrative: Exam Narrative: PHYSICAL EXAM General: Pleasant, NAD Cardiovascular: RRR, S1S2. No pitting edema Pulmonary: CTA bilaterally without rhonchi, rales, expiratory wheezes. No dyspnea on room air Abdominal: Softening, no guarding Extremities: No gross joint deformity or swelling. AROMI. Neurovascularly intact Skin: Warm, dry. Const: Vital Signs, click to edit/add: Vital Signs - 24 hr 06/14/24 11:00 06/14/24 15:00 06/14/24 15:00 Temperature 97.4 F L 98.6 F Pulse Rate [Pulse Oximeter] 87 92 Respiratory Rate 18 20 Blood Pressure [Le ft Arm] 158/88 H 167/82 H Blood Pressure [Ri ght Arm] Pulse Oximetry 96 94 94 Oxygen Delivery Me thod Room Air Room Air 06/14/24 15:00 06/14/24 15:00 06/14/24 20:12 Temperature 97.8 F Pulse Rate [Pulse Oximeter] 92 84 Respiratory Rate 20 18 Blood Pressure [Le ft Arm] 165/90 H Blood Pressure [Ri ght Arm] Pulse Oximetry 94 93 Oxygen Delivery Al thod Room Air Room Air 06/14/24 23:18 06/14/24 23:20 06/14/24 23:20 Temperature 97.8 F Pulse Rate [Pulse Oximeter] 84 Respiratory Rate 16 16 Blood Pressure [Le ft Arm] 139/75 Blood Pressure [Ri ght Arm] Pulse Oximetry 93 93 93 Oxygen Delivery Al thod Room Air Room Air 06/15/24 02:49 06/15/24 08:15 06/15/24 08:15 Temperature 97.6 F Pulse Rate [Pulse Oximeter] 80 Respiratory Rate 18 20 Blood Pressure [Le ft Arm] 163/89 H Blood Pressure [Ri ght Arm] Pulse Oximetry 94 95 95 Oxygen Delivery Al thod Room Air Room Air 06/15/24 08:15 Temperature 98.0 F Pulse Rate [Pulse Oximeter] 82 Respiratory Rate 20 Blood Pressure [Le ft Arm] Blood Pressure [Ri ght Arm] 131/67 Pulse Oximetry 95 Oxygen Delivery Me thod Room Air Labs Labs: Laboratory Results - last 24 hr 06/14/24 06/15/24 09:12 06:09 WBC 9.86 RBC 3.63 L Hgb 11.4 L Hct 34.1 MCV 94 MCH 31 MCHC 33 Plt Count 235 Sodium 131 L Potassium 4.0 Chloride 99 Carbon Dioxide 23 Anion Gap 9 BUN 14 Creatinine 0.6 Estimated Creat Clear 44.10 Estimated GFR 92 Glucose 83 Calcium 8.5 Urine Color Yellow Urine Appearance Clear Urine pH 7.0 Ur Specific [place] 1.025 Urine Protein Trace A Urine Glucose (UA) Negative Urine Ketones 4+ A Urine Blood Trace-intact A Urine Nitrite Negative Urine Bilirubin 1+ A Urine Urobilinogen 1.0 Ur Leukocyte Esterase Negative Urine RBC 0-2 Urine WBC 0-2 Ur Squamous Epith Cells Few Urine Bacteria None
[2024-06-15] MEDS: OMEPRAZOLE 20 MG CAPSULE DR PO (11:42)
[2024-06-15] MEDS: SODIUM CHLORIDE 1 GM TABLET PO ×2 (11:42→18:18)
--- NOTE | 2024-06-15 12:46 | PM.GSPN ---
Subjective Subjective Date Seen: 06/15/24 Interval history: Ira had a suppository today and has been having many bowel movements. Pain is controlled. She feels her abdominal distention is better. She thinks that her legs bilaterally are more swollen than usual. Denies nausea but does have some heartburn. Exam Narrative: Exam Narrative: General: No acute distress CV: Regular rate Respiratory: Breathing nonlabored on room air Abdomen: Seems less distended today. Minimally tender to palpation. Incision is clean and dry. Mild amount of ecchymoses. No erythema. Const: Vital Signs, click to edit/add: Vital Signs - 24 hr 06/14/24 15:00 06/14/24 15:00 06/14/24 15:00 Temperature 98.6 F Pulse Rate [Pulse Oximeter] 92 92 Respiratory Rate 20 20 Blood Pressure [Le ft Arm] 167/82 H Blood Pressure [Ri ght Arm] Pulse Oximetry 94 94 Oxygen Delivery Me thod Room Air 06/14/24 15:00 06/14/24 20:12 06/14/24 23:18 Temperature 97.8 F 97.8 F Pulse Rate [Pulse Oximeter] 84 84 Respiratory Rate 18 16 Blood Pressure [Le ft Arm] 165/90 H 139/75 Blood Pressure [Ri ght Arm] Pulse Oximetry 94 93 93 Oxygen Delivery Me thod Room Air Room Air Room Air 06/14/24 23:20 06/14/24 23:20 06/15/24 02:49 Temperature 97.6 F Pulse Rate [Pulse Oximeter] 80 Respiratory Rate 16 18 Blood Pressure [Le ft Arm] 163/89 H Blood Pressure [Ri ght Arm] Pulse Oximetry 93 93 94 Oxygen Delivery Me thod Room Air Room Air 06/15/24 08:15 06/15/24 08:15 06/15/24 08:15 Temperature 98.0 F Pulse Rate [Pulse Oximeter] 82 Respiratory Rate 20 20 Blood Pressure [Le ft Arm] Blood Pressure [Ri ght Arm] 131/67 Pulse Oximetry 95 95 95 Oxygen Delivery Me thod Room Air Room Air 06/15/24 11:48 Temperature 97.5 F L Pulse Rate [Pulse Oximeter] 84 Respiratory Rate 16 Blood Pressure [Le ft Arm] 163/90 H Blood Pressure [Ri ght Arm] Pulse Oximetry 97 Oxygen Delivery Me thod Room Air Labs/Imaging Labs Labs: White blood cell count is down to 9. Progress Note:A&P Assessment and plan (1) Hyponatremia: Status: Acute (2) Ileus: Status: Acute (3) Status post exploratory laparotomy: Status: Acute Plan The patient is postop day 4 status post exploratory laparotomy with reduction of closed loop bowel obstruction. -she looks good today overall. She does have some return of bowel function though this was stimulated via suppository. I recommend she go slow with her diet. Full liquids is okay. -PPI for reflux. -continue ambulation and IS -continue Lovenox for DVT prophylaxis. -if patient does well today and has no nausea with advancement of diet, could potentially advance her diet to regular tomorrow with possible discharge tomorrow evening.
--- NOTE | 2024-06-15 19:32 | PC.NURSE ---
Pt needing encouragement for ambulation. C/O BLE edema, encouraged foot pumps, ambulation, TEDS, and SCD use. Refused TEDS but agreed to other three. Per Dr. Murray scrambled eggs for dinner ok, ate 90%, denies post meal N/V.
[2024-06-15] MEDS: SIMVASTATIN 10 MG TABLET PO (21:06)
[2024-06-15] MEDS: MELATONIN 3 MG TABLET PO (21:06)
[2024-06-15] MEDS: ENOXAPARIN 40 MG/0.4 ML INJ SUBCUT (21:07)
[2024-06-16 02:50] VITALS: BP 143/86; PULSE 85; RESP 12; TEMP 35.9; O2SAT 94
[2024-06-16] MEDS: OMEPRAZOLE 20 MG CAPSULE DR PO (06:17)
[2024-06-16 06:27] LABS: Hematocrit 34.5 % (33.0-51.0); Hemoglobin* 11.6 gm/dL (12.0-16.0); Mean Corpuscular HGB Conc 34 gm/dL (32-36); Mean Corpuscular Hemoglobin 31 pg (26-34); Mean Corpuscular Volume 93 fL (80-100); Platelet Count* 240 K/uL (140-440); White Blood Count* 10.07 K/uL (4.50-11.00)
[2024-06-16 06:32] LABS: Slide Review Reflex No
--- NOTE | 2024-06-16 06:38 | PC.NURSE ---
End of shift [id number]: A&O pleasant and cooperative. VSS w/ sats >90% on RA. Pt denying pain. Active bowel sounds. Pt has had multiple small loose bowel movements throughout shift. Up at kwadwo in room. Ambulated in trivedi x1. Erisa Attorney encouraged ambulation. Using call light appropriately.
[2024-06-16 07:00] VITALS: BP 155/88; PULSE 88; RESP 16; TEMP 36.4; O2SAT 95
[2024-06-16 07:12] LABS: Chloride* 100 mmol/L (96-114); Potassium* 3.8 mmol/L (3.6-5.1); Sodium* 131 mmol/L (135-149)
[2024-06-16 07:14] LABS: Creatinine* 0.6 mg/dL (0.5-1.5); Estimated Glomerular Filt Rate 92 ml/min
[2024-06-16 07:15] LABS: Blood Urea Nitrogen* 11 mg/dL (7-30); Calcium* 8.6 mg/dL (8.4-10.6); Carbon Dioxide* 26 mmol/L (20-32); Glucose* 86 mg/dL (60-115)
[2024-06-16 07:18] LABS: Anion Gap 5 mEq/L (7-15)
[2024-06-16] MEDS: SODIUM CHLORIDE 1 GM TABLET PO (08:37)
[2024-06-16] MEDS: SODIUM CHLORIDE 0.9 % (FLUSH) 10 ML SYRINGE 5 ML IVF (08:37)
--- NOTE | 2024-06-16 11:46 | P.DS_ITS ---
DS: Providers Provider Date Seen: 06/16/24 Date of admission: 06/10/24 19:47 Primary care physician: Shari Brown MD Admitting Clinician: Sadi Warner MD Consults: 06/10/24 19:25 Consult to Physician [CONS] Urgent Comment: Consulting Provider: Wendy Ho Has provider been notified: Yes Attending Physician on discharge: Feli Manuel MD [facility] Date of Discharge: 06/16/24 DS: Diagnosis Discharge Diagnosis (1) Small bowel obstruction: Status: Acute Problem details: CT showed Small-bowel obstruction with transition point in the left mid hemiabdomen, suspect on the basis of an adhesion S/p exploratory laparotomy, reduction of closed loop small-bowel obstruction 06/11 s/p NG tube and IVF diet advanced; tolerating a regular diet on 06/16 prior to discharge History of previous kidney surgery (2) Status post exploratory laparotomy: Status: Acute Problem details: Dr. Ho, 06/11/24 1. Exploratory laparotomy 2. Reduction of closed loop small bowel obstruction (3) Hyponatremia: Status: Acute Problem details: Sodium 131 in setting of reduced oral intake postop. encouraged protein supplements recheck within a week of discharge arranged (4) Constipation: Status: Acute Problem details: Lifelong problem. Recommend more aggressive laxative use chronically Encourage ambulation Suppository with several BMs on 06/15 (5) Hyperlipidemia: Status: Acute Problem details: Continue statin DS: Summary Hospital Course Hospital Course: FINAL DIAGNOSIS/FOLLOW UP ISSUES: 1. SBO secondary to adhesions. Exploratory laparotomy, lysis of adhesions completed. Tolerating regular diet at discharge. BRIEF HOSPITAL COURSE: Patient was admitted for 7 days. Synopsis of acute inpatient issues are outlined above. Chronic medical conditions with notable findings outlined above. Patient presented with a small-bowel obstruction. She was admitted on June 10. She had an exploratory laparotomy with lysis of adhesions with general surgery on June 11. By day of discharge on June 16 she was tolerating a normal diet and walking the halls. DISCHARGE MEDICATIONS: See Reconciled list - SIGNIFICANT CHANGES: No changes. Specific instructions to the patient and follow-up are outlined below. REVIEW OF SYSTEMS No new chest pain or dyspnea Pain controlled No voiding difficulties Tolerating diet challenge PHYSICAL EXAM: CONSTITUTIONAL: Well-appearing. Ambulating the halls. VITAL SIGNS: see record. HEENT: Normocephalic, atraumatic. PERRL, EOMI, conjunctivae pink, no scleral icterus. Ears and nose externally normal. Pharynx normal. NECK: No JVD. No carotid bruit, no thyromegaly, no adenopathy. CHEST: Clear to auscultation bilaterally. HEART: S1 and S2 normal. Edema ABDOMEN: Soft, nontender. Normal bowel sounds. MUSCULOSKELETAL: No gross joint deformity or swelling. NEURO: Cranial nerves intact. Grossly intact. No asymmetric findings. SKIN: No rashes, petechiae, concerning changes PSYCHIATRIC: Mood euthymic. DISPOSITION: Home with Time spent on discharge 37 minutes. Status at Discharge Functional status at discharge: independent ambulation Overall status at discharge: patient is progressing back to baseline Time Spent with Patient Time attestation: Total time spent providing and/or coordinating discharge services: Exam Const: Vital Signs, click to edit/add: Vital Signs - 24 hr 06/15/24 11:48 06/15/24 15:30 06/15/24 15:30 Temperature 97.5 F L Pulse Rate [Pulse Oximeter] 84 83 Respiratory Rate 16 18 Blood Pressure [Le ft Arm] 163/90 H Pulse Oximetry 97 98 Oxygen Delivery Me thod Room Air 06/15/24 15:30 06/15/24 15:30 06/15/24 19:45 Temperature 97.4 F L 98.3 F Pulse Rate [Pulse Oximeter] 83 87 Respiratory Rate 18 18 16 Blood Pressure [Le ft Arm] 167/93 H 156/90 H Pulse Oximetry 98 98 95 Oxygen Delivery Me thod Room Air Room Air Room Air 06/15/24 22:58 06/15/24 23:00 06/15/24 23:04 Temperature Pulse Rate [Pulse Oximeter] Respiratory Rate 16 16 Blood Pressure [Le ft Arm] Pulse Oximetry 95 95 95 Oxygen Delivery Me thod Room Air Room Air 06/16/24 02:50 06/16/24 07:00 06/16/24 07:00 Temperature 96.7 F L Pulse Rate [Pulse Oximeter] 85 88 Respiratory Rate 12 16 Blood Pressure [Le ft Arm] 143/86 H Pulse Oximetry [address] thod Room Air 06/16/24 07:00 06/16/24 07:00 Temperature 97.6 F Pulse Rate [Pulse Oximeter] 88 Respiratory Rate 16 16 Blood Pressure [Le ft Arm] 155/88 H Pulse Oximetry 95 95 Oxygen Delivery Me thod Room Air Room Air DS: Data Data Completed and Pending Labs on day of discharge: Labs from last 24 hours 06/16/24 05:40 WBC 10.07 RBC 3.70 L Hgb 11.6 L Hct 34.5 MCV 93 MCH 31 MCHC 34 Plt Count 240 Sodium 131 L Potassium 3.8 Chloride 100 Carbon Dioxide 26 Anion Gap 5 L BUN 11 Creatinine 0.6 Estimated Creat Clear 44.10 Estimated GFR 92 Glucose 86 Calcium 8.6 Preliminary micro results at discharge 06/14/24 11:34 Blood Culture - Preliminary Blood NO GROWTH AFTER 48 HOURS Discharge Plan Discharge Disposition: Home, Self-Care Date of Admission: 06/10/24 19:47 Attending Provider on Discharge: Feli Manuel Consulting Providers: Wendy Ho Primary Care Provider: Shari Brown Condition: Unchanged Anticipated Discharge Date/Time: 06/16/24 10:05 Discharge Medications: Continued cholecalciferol (vitamin D3) 25 mcg (1,000 unit) capsule 25 mcg PO QDAY simvastatin 10 mg tablet 10 mg PO HS Discharge Orders: Discharge Order (Routine); Ordered 06/16/24 Ordered By: Feli Manuel Patient Education: Bowel Obstruction (DC) Additional Instructions: Get your blood checked in about 1 week. Your sodium is a little low but I expect this to be normal as you are able to eat more and return to normal activity. Ask Dr. Brown to order a BMP (basic metabolic panel) for next week. Your sodium was 131. It should be 135-149. Activity Level: Activity as Tolerated Discharge Diet: Regular Diet Detail: go slow with food; eat like you are getting over the flu. toast, rice, scrambled eggs, cheerios, applesauce. Follow Up Appointments: Wendy Ho MD [Staff Physician] - 06/28/24 10:45 am ([facility] for post hospital follow-up.) Shari Brown MD [Primary Care Provider] - 06/28/24 3:45 pm ([facility] for post hospitalization follow-up.) [facility] Inst[facility]
--- NOTE | 2024-06-16 12:42 | PC.NURSE ---
Discharge: patient discharged to home today accompanied by . IV removed intact. Patient VSS, RA, tolerating a reg. BRAT diet. Patient denies N/V/SOB or pain. Patient verbalized understanding of discharge instructions and signed belongings sheet and discharge.
--- NOTE | 2024-06-16 13:03 | PM.GSPN ---
Subjective Subjective Date Seen: 06/16/24 Interval history: Ira ate breakfast without difficulty. She has had return of bowel function. She is having minimal pain. She is passing gas. Exam Narrative: Exam Narrative: General: No acute distress CV: Regular rate Abdomen: Still somewhat protuberant, however soft and minimally tender. Incisions are clean and dry. Const: Vital Signs, click to edit/add: Vital Signs - 24 hr 06/15/24 15:30 06/15/24 15:30 06/15/24 15:30 Temperature Pulse Rate [Pulse Oximeter] 83 Respiratory Rate 18 18 Blood Pressure [Le ft Arm] Pulse Oximetry 98 98 Oxygen Delivery Me thod Room Air 06/15/24 15:30 06/15/24 19:45 06/15/24 22:58 Temperature 97.4 F L 98.3 F Pulse Rate [Pulse Oximeter] 83 87 Respiratory Rate 18 16 16 Blood Pressure [Le ft Arm] 167/93 H 156/90 H Pulse Oximetry 98 95 95 Oxygen Delivery Me thod Room Air Room Air Room Air 06/15/24 23:00 06/15/24 23:04 06/16/24 02:50 Temperature 96.7 F L Pulse Rate [Pulse Oximeter] 85 Respiratory Rate 16 12 Blood Pressure [Le ft Arm] 143/86 H Pulse Oximetry 95 95 94 Oxygen Delivery Me thod Room Air Room Air 06/16/24 07:00 06/16/24 07:00 06/16/24 07:00 Temperature Pulse Rate [Pulse Oximeter] 88 Respiratory Rate 16 16 Blood Pressure [Le ft Arm] Pulse Oximetry 95 95 Oxygen Delivery Ma thod Room Air 06/16/24 07:00 Temperature 97.6 F Pulse Rate [Pulse Oximeter] 88 Respiratory Rate 16 Blood Pressure [Le ft Arm] 155/88 H Pulse Oximetry 95 Oxygen Delivery Me thod Room Air Progress Note:A&P Assessment and plan (1) Small bowel obstruction: Status: Acute (2) Status post exploratory laparotomy: Status: Acute Plan Ira is a 78-year-old female who is postop day 5 status post exploratory laparotomy and reduction of closed loop bowel obstruction. She has had return of bowel function. Overall she is doing well. She may discharge home today, however I told her to go slow with her diet. If she develops nausea or vomiting she must return to be seen. -she should not lift more than 20 lb for the next 4 weeks. -follow up in clinic with me in 2 weeks.
== END 2024-06-16 11:25 | disposition home or self-care (01) | DRG 330 ==
LOC: ED 19:01 → MEDSURG 19:47
PROVIDERS: Physician Assistant; Surgery; Admitting Provider Family Medicine; Emergency Provider Family Medicine; PCP Family Medicine; Visit Provider Family Medicine
PROC: 0DS80ZZ Reposition Small Intestine, Open Approach (ICD-10-PCS; CPT 49000; principal; 2024-06-11 10:30)
DX: K56.50 Intestinal adhesions [bands], unspecified as to partial versus complete obstruction (principal); E87.1 Hypo-osmolality and hyponatremia; K91.89 Other postprocedural complications and disorders of digestive system; J98.11 Atelectasis; K56.7 Ileus, unspecified; G89.18 Other acute postprocedural pain; Z52.4 Kidney donor; E87.6 Hypokalemia; K59.00 Constipation, unspecified; Z72.0 Tobacco use; K21.9 Gastro-esophageal reflux disease without esophagitis; Z90.5 Acquired absence of kidney; R11.2 Nausea with vomiting, unspecified; R00.0 Tachycardia, unspecified; K63.89 Other specified diseases of intestine; M85.80 Other specified disorders of bone density and structure, unspecified site; E78.5 Hyperlipidemia, unspecified; R73.03 Prediabetes
CPT/HCPCS: 00840; 36415; 64488; 71045; 74018; 74177; 76942; 80048; 80053; 81001; 82565; 83605; 83690; 84145; 85025; 85027; 86140; 87040; 93005; 94761; 99100; 99140; 99284; 99285; A9270; C9290; J0330; J0665; J1100; J1170; J1200; J1650; J2250; J2270; J2371; J2405; J2543; J2704; J3010; J3490; J7030; J7120; Q9967

== ENCOUNTER 2024-07-01 09:26 | Outpatient (CLI) | payer MEDICARE, SELFPAY ==
--- NOTE | 2024-07-01 10:00 | CRLHL7_ITS ---
For Patients: As a result of the Century Cures Act, medical imaging exams and procedure reports are released immediately into your electronic medical record. You may view this report before your referring provider. If you have questions, please contact your health care provider. INDICATION: Leg swelling and pain. TECHNIQUE: Ultrasound venous duplex bilateral lower extremity. Compression venous exam was performed using ray-scale, color Doppler, and spectral Doppler analysis. COMPARISON: None available. FINDINGS: Deep veins: Sonographic imaging demonstrates the bilateral common femoral, deep femoral, superficial femoral, popliteal, posterior tibial and peroneal veins to be fully compressible with normal color Doppler blood flow. Superficial veins: Visualized portions of the greater saphenous veins are fully compressible. IMPRESSION: Normal bilateral lower extremity venous ultrasound, no sign of deep venous thrombosis. Dictated by Keyla Salcido MD @ 07/01/2024 10:28:26 AM (Electronically Signed)
== END 2024-07-01 09:27 | disposition home or self-care (01) ==
LOC: US 09:28
PROVIDERS: PCP Family Medicine; Visit Provider Surgery
DX: M79.89 Other specified soft tissue disorders (principal)
CPT/HCPCS: 93970

== ENCOUNTER 2024-10-11 11:17 | Outpatient (CLI) | payer MEDICARE, SELFPAY ==
--- NOTE | 2024-10-11 11:30 | CRLHL7_ITS ---
For Patients: As a result of the Century Cures Act, medical imaging exams and procedure reports are released immediately into your electronic medical record. You may view this report before your referring provider. If you have questions, please contact your health care provider. BILATERAL SCREENING MAMMOGRAM WITH COMPUTER-AIDED DETECTION AND TOMOSYNTHESIS TECHNIQUE: CC and MLO views were obtained. These mammographic images have been obtained using full-field digital technique. These mammographic images were interpreted with the benefit of computer-aided detection. Breast Tomosynthesis was used in this interpretation. COMPARISON FILM: 10/08/23, 09/04/22, 08/22/21. FINDINGS: The breasts are heterogeneously dense, which may obscure small masses IMPRESSION: There is no radiographic evidence for malignancy. ASSESSMENT: BI-RADS Category 2: Benign RECOMMENDATION: Routine screening mammogram in 1 year. A lay language report of this examination will be provided to the patient. Leland Haynes M.D. Diagnostic Radiologist [email or web address] Transcribed: 1:38 p.bhanu vaz/Dictated by: Leland Haynes MD @ 10/11/2024 12:44:00 PM (Electronically Signed)
== END 2024-10-11 11:18 | disposition home or self-care (01) ==
LOC: MAMMO 11:21
PROVIDERS: PCP Family Medicine; Visit Provider Family Medicine
DX: Z12.31 Encounter for screening mammogram for malignant neoplasm of breast (principal); R92.333 Mammographic heterogeneous density, bilateral breasts
CPT/HCPCS: 77063; 77067

== ENCOUNTER 2025-04-20 13:38 | Outpatient (CLI) | payer MEDICARE, SELFPAY ==
--- NOTE | 2025-04-20 14:00 | CRLHL7_ITS ---
For Patients: As a result of the Century Cures Act, medical imaging exams and procedure reports are released immediately into your electronic medical record. You may view this report before your referring provider. If you have questions, please contact your health care provider. XR DXA BONE MINERAL DENSITY (BMD) Current height (in): 65.0. Weight (lb): 150.0. Menopause age: 47. Ethnicity: White. Reason for exam: Asymptomatic menopausal status. 1. Have you had a previous hip or vertebral fracture? No. 2. Have you had any fractures during your adult life which did not result from significant trauma (e.g., auto accident)? No. 3. Did either of your parents have a hip fracture? No. 4. Do you smoke? Yes. 5. Have you ever taken Glucocorticoids? No. 6. Do you have rheumatoid arthritis? No. 7. Do you have secondary osteoporosis? No. 8. Do you drink 3 or more alcoholic drinks per day? No. 9. Are you being treated for osteoporosis? No. 10. Have you ever taken any of the following medications: Actonel, Evista, Fosamax, Miacalcin, Reclast, Boniva, Forteo, HRT (i.e. estrogen/hormone therapy), Protelos, Prolia, Vitamin D, Calcium, other ??? please specify. ANSWER: Yes, vitamin D, calcium. 11. Do you have any of the following medical conditions: Anorexia or bulimia, asthma or emphysema, end stage renal disease, hyperparathyroidism, any seizure disorders, cancer, inflammatory bowel diseases, hysterectomy, other ??? please specify. ANSWER: No. 12. What was your maximum height (inches)? 66. 13. Do you perform weight bearing exercise regularly? Yes. 14. Do you regularly consume dairy products? No. 15. Do you drink caffeinated beverages? Yes. 16. At what age did your period start? 14. 17. Are you premenopausal? No. 18. How many full-term pregnancies have you had? 3. 19. Have you ever missed your period for more than 6 months in a row (not including or menopause)? No. TECHNIQUE: Bone mineral density study was performed using the [employer]. FINDINGS: The results of the study expressed as bone mineral density (BMD) are as follows: Lumbar spine L1 to L4: BMD: 0.906 g/cm2. T-score: -1.3. Z-score: 1.3 Neck Left: BMD: 0.768 g/cm2. T-score: -0.7. Z-score: 1.5 Right: BMD: 0.663 g/cm2. T-score: -1.7. Z-score: 0.6 Total Left: BMD: 0.822 g/cm2. T-score: -1.0. Z-score: 1.0 Right: BMD: 0.756 g/cm2. T-score: -1.5. Z-score: 0.5 IMPRESSION: Osteopenia. FRAX 10-year Fracture Risk Major Osteoporotic Fracture: 14 percent Hip Fracture: 5.4 percent Reported Risk Factors: [place] () Neck BMD = 0.663, BMI = 25.0 Leland Haynes M.D. Diagnostic Radiologist [email or web address] Transcribed: 9:42 am DW/Dictated by: Leland Haynes MD @ 04/21/2025 9:13:00 AM (Electronically Signed)
== END 2025-04-20 13:39 | disposition home or self-care (01) ==
LOC: RAD 13:41
PROVIDERS: PCP Family Medicine; Visit Provider Family Medicine
DX: Z78.0 Asymptomatic menopausal state (principal); M85.89 Other specified disorders of bone density and structure, multiple sites
CPT/HCPCS: 77080

== ENCOUNTER 2025-11-13 12:40 | Outpatient (CLI) | payer MEDICARE, SELFPAY ==
--- NOTE | 2025-11-13 13:00 | CRLHL7_ITS ---
For Patients: As a result of the Century Cures Act, medical imaging exams and procedure reports are released immediately into your electronic medical record. You may view this report before your referring provider. If you have questions, please contact your health care provider. INDICATION: BILATERAL SCREENING MAMMOGRAM, ASYMPTOMATIC 80 Y/O FEMALE COMPARISON: 10/11/2024, 10/08/2023, 09/04/2022 TECHNIQUE: Digital mammogram in CC and MLO projections including computer-aided detection (CAD) and tomosynthesis. BREAST COMPOSITION: The breasts are heterogeneously dense, which may obscure small masses. FINDINGS: No suspicious findings. ASSESSMENT: BI-RADS 1 Negative RECOMMENDATION: Annual screening mammogram. A lay language report of this examination will be provided to the patient. Dictated by: Leland Haynes MD @ 11/14/2025 09:21:32 (Electronically Signed)
== END 2025-11-13 12:41 | disposition home or self-care (01) ==
LOC: MAMMO 12:41
PROVIDERS: PCP Family Medicine; Visit Provider Family Medicine
DX: Z12.31 Encounter for screening mammogram for malignant neoplasm of breast (principal); R92.333 Mammographic heterogeneous density, bilateral breasts
CPT/HCPCS: 77063; 77067